=== PATIENT | female | born 1970 | race Caucasian/White ===

== ENCOUNTER 2017-01-07 14:38 | Emergency (ER) | payer OTHER ==
--- NOTE | 2017-01-07 15:08 | ER Document Report ---
ED Medical Screen (RME) - General Stated Complaint: COUGH Mode of Arrival: Ambulatory Information source: Patient Notes: Patient complains of cough for the past 3 weeks. Patient reports right lower quadrant abdominal pain for the past 3 days. Patient denies any urinary symptoms, vaginal bleeding, vaginal discharge, or fever. Patient does report some nausea. Diarrhea has been off and on. hx: None I have greeted and performed a rapid initial assessment of this patient. A comprehensive ED assessment and evaluation of the patient, analysis of test results and completion of the medical decision making process will be conducted by additional ED providers. TRAVEL OUTSIDE OF THE [place] IN LAST 30 DAYS: No - Related Data Allergies/Adverse Reactions: codeine [Codeine] Allergy (Verified 11/29/16 15:32) Past Medical History Pulmonary Medical History: Reports: Hx Asthma, Hx Bronchitis Renal/ Medical History: Reports: Hx Ovarian Cysts Musculoskeltal Medical History: Reports Hx Arthritis - low back, Reports Hx Musculoskeletal Deformity, Reports Hx Musculoskeletal Trauma Traumatic Medical History: Reports: Hx Fractures - Hand Past Surgical History: Reports: Hx Appendectomy, Hx Gynecologic Surgery - Fallopian tubes cleaned out and noted to become , Hx Orthopedic Surgery - Right shoulder - Immunizations Hx Diphtheria, Pertussis, Tetanus Vaccination: Yes Physical Exam - Vital signs Vitals: Temp Pulse Resp BP Pulse Ox 97.9 F 97 18 117/64 100 01/07/17 15:00 01/07/17 15:00 01/07/17 15:00 01/07/17 15:00 01/07/17 15:00 - Respiratory Respiratory status: No respiratory distress Breath sounds: Nonproductive cough Course - Vital Signs Vital signs: Temp Pulse Resp BP Pulse Ox 97.9 F 97 18 117/64 100 01/07/17 15:00 01/07/17 15:00 01/07/17 15:00 01/07/17 15:00 01/07/17 15:00
[2017-01-07 15:31] LABS: ABSOLUTE BASOPHILS # (AUTO) 0.1 10^3/uL (0.0-0.2); ABSOLUTE EOSINOPHILS # (AUTO) 0.1 10^3/uL (0.0-0.6); ABSOLUTE LYMPHOCYTES (AUTO) 2.7 10^3/uL (0.5-4.7); ABSOLUTE MONOCYTES (AUTO) 0.5 10^3/uL (0.1-1.4); ABSOLUTE NEUT (AUTO) 6.3 10^3/uL (1.7-8.2); BASOPHILS % (AUTO) 0.8 % (0-2); EOSINOPHILS % (AUTO) 0.9 % (0-6); HEMOGLOBIN 14.5 g/dL (12.0-15.5); HGB HCT DIFFERENCE 1.5; LYMPHOCYTES % (AUTO) 28.2 % (13-45); MEAN CORPUSCULAR HEMOGLOBIN 28.9 pg (27.0-33.4); MEAN CORPUSCULAR HGB CONC 34.4 g/dL (32.0-36.0); MEAN CORPUSCULAR VOLUME 84 fl (80-97); MONOCYTES % (AUTO) 5.1 % (3-13); RED BLOOD COUNT 5.01 10^6/uL (3.72-5.28); RED CELL DISTRIBUTION WIDTH 13.1 % (11.5-14.0); WHITE BLOOD COUNT 9.6 10^3/uL (4.0-10.5)
[2017-01-07 15:47] LABS: APPEARANCE,URINE CLEAR; BILIRUBIN,URINE NEGATIVE (NEGATIVE); GLUCOSE, URINE NEGATIVE (NEGATIVE); KETONES,URINE NEGATIVE (NEGATIVE); LEUKOCYTE ESTERASE,URINE NEGATIVE (NEGATIVE); NITRITE,URINE NEGATIVE (NEGATIVE); PROTEIN,URINE NEGATIVE (NEGATIVE); URINE SPECIFIC GRAVITY 1.005; UROBILINOGEN,URINE NEGATIVE mg/dL (<2.0)
[2017-01-07 15:51] LABS: ALANINE AMINOTRANSFERASE 19 U/L (9-52); ALBUMIN 4.3 g/dL (3.5-5.0); ALKALINE PHOSPHATASE 84 U/L (38-126); ANION GAP 12 (5-19); ASPARTATE AMINO TRANSFERASE 15 U/L (14-36); BILIRUBIN,TOTAL 0.4 mg/dL (0.2-1.3); BLOOD UREA NITROGEN 8 mg/dL (7-20); CALCIUM 9.7 mg/dL (8.4-10.2); CARBON DIOXIDE 27 mmol/L (22-30); CHLORIDE 103 mmol/L (98-107); CREATININE RESULT 0.66 mg/dL (0.52-1.25); GLUCOSE 98 mg/dL (75-110); LIPASE 196.7 U/L (23-300); POTASSIUM 3.9 mmol/L (3.6-5.0); SODIUM 142.3 mmol/L (137-145); TOTAL PROTEIN 7.2 g/dL (6.3-8.2)
--- NOTE | 2017-01-07 21:08 | ER Document Report ---
ED Respiratory Problem - General Chief Complaint: Abdominal Pain Stated Complaint: COUGH Time seen by provider: 21:03 Mode of Arrival: Ambulatory Information source: Patient Notes: 26-year-old female presents to ED for 3 week history of cough congestion. Patient complains of some nausea no vomiting and diarrhea off and on with lower right quadrant abdominal pain. TRAVEL OUTSIDE OF THE [place] IN LAST 30 DAYS: No - HPI Patient complains to provider of: Cough Onset: Other - 3 weeks Duration: Continuous Initiating Event: URI Quality of pain: Sharp Severity: Mild Pain Level: 2 Cough: Nonproductive Sputum amount: None Associated symptoms: Cough, PND, Runny nose, Other - Right abdominal pain. 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 Drug Abuse: None Occupation: [employer] Lives with: Alone Family History: Arthritis, CAD, CVA, DM, Hyperlipidemia, Hypertension, Malignancy Patient has suicidal ideation: No Patient has homicidal ideation: No - Past Medical History Cardiac Medical History: Reports: None Pulmonary Medical History: Reports: Hx Asthma, Hx Bronchitis EENT Medical History: Reports: None Neurological Medical History: Reports: None Endocrine Medical History: Reports: None Renal/ Medical History: Reports: Hx Ovarian Cysts Malignancy Medical History: Reports: None GI Medical History: Reports: None Musculoskeltal Medical History: Reports Hx Arthritis - low back, Reports Hx Musculoskeletal Deformity, Reports Hx Musculoskeletal Trauma Skin Medical History: Reports None Psychiatric Medical History: Reports: None Traumatic Medical History: Reports: Hx Fractures - Hand Infectious Medical History: Reports: None Past Surgical History: Reports: Hx Appendectomy, Hx Gynecologic Surgery - Fallopian tubes cleaned out and noted to become , Hx Orthopedic Surgery - Right shoulder - Immunizations Hx Diphtheria, Pertussis, Tetanus Vaccination: Yes Review of Systems - Review of Systems Constitutional: Recent illness EENT: Nose discharge, Sinus discharge Cardiovascular: No symptoms reported Respiratory: Cough Gastrointestinal: Abdominal pain, Diarrhea, Nausea Genitourinary: No symptoms reported Female Genitourinary: No symptoms reported Musculoskeletal: No symptoms reported Skin: No symptoms reported Hematologic/Lymphatic: No symptoms reported Neurological/Psychological: No symptoms reported -: Yes All other systems reviewed and negative Physical Exam - Vital signs Vitals: Temp Pulse Resp BP Pulse Ox 97.9 F 97 18 117/64 100 01/07/17 15:00 01/07/17 15:00 01/07/17 15:00 01/07/17 15:00 01/07/17 15:00 Interpretation: Normal - General General appearance: Appears well, Alert - HEENT Head: Normocephalic, Atraumatic Eyes: Normal Pupils: PERRL Ears: Normal External canal: Normal Tympanic membrane: Normal Nasal: Purulent discharge, Swelling Mouth/Lips: Normal Mucous membranes: Normal Pharynx: Post nasal drainage. No: Exudate Neck: Normal - Respiratory Respiratory status: No respiratory distress Chest status: Nontender Breath sounds: Nonproductive cough Chest palpation: Normal - Cardiovascular Rhythm: Regular Heart sounds: Normal auscultation Murmur: No - Abdominal Inspection: Normal Distension: No distension Bowel sounds: Normal Tenderness: Tender. No: McBurney's point - Right lower quadrant, Sher's sign , Guarding, Rebound Organomegaly: No organomegaly - Back Back: Normal, Nontender - Extremities General upper extremity: Normal inspection, Nontender, Normal color, Normal ROM , Normal temperature General lower extremity: Normal inspection, Nontender, Normal color, Normal ROM , Normal temperature, Normal weight bearing. No: Aubrie's sign - Neurological Neuro grossly intact: Yes Cognition: Normal Orientation: AAOx4 Osmar Coma Scale Eye Opening: Spontaneous Shepherd Coma Scale Verbal: Oriented Shepherd Coma Scale Motor: Obeys Commands Osmar Coma Scale Total: 15 Speech: Normal Motor strength normal: LUE, RUE, LLE, RLE Sensory: Normal - Psychological Associated symptoms: Normal affect, Normal mood - Skin Skin Temperature: Warm Skin Moisture: Dry Skin Color: Normal Course - Re-evaluation Re-evalutation: 01/07/17 21:[address] Pelaez for abdominal pain. Dr. Pelaez came to the patient examined her and stated she was okay to go home. We'll discharge home with prescription for ibuprofen and a work note and follow-up with her primary doctor. - Vital Signs Vital signs: Temp Pulse Resp BP Pulse Ox 98.2 F 82 18 113/74 100 01/07/17 21:17 01/07/17 21:17 01/07/17 15:00 01/07/17 21:17 01/07/17 21:17 - Laboratory Result Diagrams: 01/07/17 15:15 01/07/17 15:15 Laboratory results interpreted by me: 01/07/17 15:20 Urine Blood SMALL H - Diagnostic Test Radiology reviewed: Image reviewed, Reports reviewed Discharge - Discharge Clinical Impression: URI (upper respiratory infection) Qualifiers: URI type: unspecified URI Qualified Code(s): J06.9 - Acute upper respiratory infection, unspecified Abdominal pain Qualifiers: Abdominal location: right lower quadrant Qualified Code(s): R10.31 - Right lower quadrant pain Condition: Stable Disposition: HOME, SELF-CARE Additional Instructions: UPPER RESPIRATORY ILLNESS: You have a viral infection of the respiratory passages -- a "cold." This common infection causes nasal congestion, drainage, and often sore throat and cough. It is highly contagious. The disease usually lasts about 10 to 14 days. There is no "cure" for the viral infection -- it must run its course. If there is a complication, such as bacterial infection in the nose, sinuses, middle ear, or bronchial tubes, antibiotics may be required. The antibiotics won't affect the virus. Drink plenty of fluids. A humidifier may help. An expectorant medication or decongestant may make you more comfortable. Use acetaminophen or ibuprofen for fever or aches. See the doctor if fever persists over two days, if there is any significant worsening of your symptoms, or if you simply fail to improve as expected. Abdominal Pain There are many causes of abdominal pain. Pain can mean a serious problem requiring surgery (such as appendicitis). It can also be an innocent problem that goes away on its own (such as a viral infection). Often, time must pass to determine the cause of pain. The physician does not feel that hospitalization is necessary, at present. Things may change within the next 24 hours. Call the doctor or come back for re- examination if any problems occur, such as: (1) Pain that becomes more severe, steady, or becomes concentrated in one specific area. Also, pain that is more severe with movement or coughing. (2) Vomiting that persists or becomes more frequent. (3) Blood in the vomitus, urine, or bowel movements. Blood in the stool may have a tarry or black appearance. (4) Shaking chills or fever greater than 100 degrees F. (5) The abdomen becomes more distended or swollen. (6) Bowel movements cease. (7) Failure to improve as expected. DECONGESTANT MEDICATION: A decongestant medicine has been prescribed. Often this medicine is combined in the same tablet with an antihistamine or expectorant. This type of medicine is helpful in treating a bad cold or sinus condition, as well as in treatment of the nasal congestion of hay fever. It is not of much benefit for lung infections. Decongestant medicines are related to stimulants. They can cause an increase in blood pressure and heart rate. Persons with heart disease and high blood pressure should not take decongestants without discussing this with the physician. If you develop palpitations, chest pain, headache, or tremors, stop the medicine and consult your physician. COUGH-SUPPRESSANT & EXPECTORANT MEDICATION: You are to use a cough medication as needed for relief of symptoms. This medicine is a combination of an expectorant (to make the mucous thinner and more easily "coughed up") and a cough suppressant (to reduce the frequency of coughing). The cough-suppressant medicine is related to narcotics. You may experience mild nausea and sleepiness. Some patients who are very sensitive to narcotics may have stomach pain from this medicine. Taking the medicine with food reduces these side effects. Do not drive or work with machinery until you know how this medicine affects you. The expectorant should have no side effects. Iodine-containing expectorants (such as organidin) should not be taken by persons with active thyroid disease unless approved by your doctor. Call the doctor if you develop shortness of breath, hives, rash, itching, lightheadedness, or severe nausea and vomiting. USE OF ACETAMINOPHEN (Tylenol): Acetaminophen may be taken for pain relief or fever control. It's much safer than aspirin, offering a wider range of "safe" dosages. It is safe during . Some brand names are Tylenol, Panadol, Datril, Anacin 3, Tempra, and Liquiprin. Acetaminophen can be repeated every four hours. The following are maximum recommended dosages: >89 pounds or adults 650 mg to 900 mg Acetaminophen can be repeated every four hours. Maximum dose not to exceed 4000 mg a day. FOLLOW-UP CARE: If you have been referred to a physician for follow-up care, call the physician s office for an appointment as you were instructed or within the next two days. If you experience worsening or a significant change in your symptoms, notify the physician immediately or return to the Emergency Department at any time for re-evaluation. Prescriptions: Ibuprofen 600 mg PO Q6HP PRN #20 tablet PRN Reason: Forms: Return to Work
[2017-01-07] MEDS ORDERED: IBUPROFEN 800 MG TABLET PO ONE (21:16)
[2017-01-07 21:18] VITALS: BP 113/74
== END 2017-01-07 21:28 | disposition home or self-care (01) ==
LOC: ER 14:38
DX: R10.31 Right lower quadrant pain (principal); J06.9 Acute upper respiratory infection, unspecified; R11.0 Nausea; R19.7 Diarrhea, unspecified; R09.89 Other specified symptoms and signs involving the circulatory and respiratory systems; R05 Cough; R09.82 Postnasal drip; J45.909 Unspecified asthma, uncomplicated; Z88.5 Allergy status to narcotic agent; Z87.891 Personal history of nicotine dependence; Z90.49 Acquired absence of other specified parts of digestive tract
CPT/HCPCS: 36415; 71020; 80053; 81001; 83690; 84703; 85025; 99283

== ENCOUNTER 2017-02-07 07:20 | Emergency (ER) | payer BC, OTHER ==
[2017-02-07] MEDS ORDERED: CEFTRIAXONE RTU 1 GM/D5W 50 ML IV ONE (09:16)
[2017-02-07] MEDS ORDERED: MORPHINE SULFATE 10 MG/ML INJ IV ONE ×2 (09:16→11:55)
[2017-02-07] MEDS ORDERED: ONDANSETRON 4 MG TAB.RAPDIS PO ONE (09:16)
[2017-02-07] MEDS ORDERED: NORMAL SALINE 1000 ML 1,000 ML IV ONE (09:19)
--- NOTE | 2017-02-07 09:20 | ER Document Report ---
ED Breast Problem - General Chief Complaint: Breast Lump Stated Complaint: SORE BREAST Time seen by provider: 09:13 Mode of Arrival: Ambulatory Information source: Patient TRAVEL OUTSIDE OF THE [place] IN LAST 30 DAYS: No - HPI Patient complains to provider of: Lump, Swelling - Just behind the nipple, Tenderness Onset: Other - 2 days Onset/Duration: Gradual Quality of pain: Pressure, Sharp, Throbbing Severity: Severe Pain Level: 5 Discharge description: No: Creamy - Firm white particulate from the nipple that does not appear to be liquid. Associated Symptoms: None Similar symptoms previously: No Recently seen / treated by doctor: No - Related Data Allergies/Adverse Reactions: codeine [Codeine] Allergy (Verified 02/07/17 07:32) Past Medical History - General Information source: Patient - Social History Smoking Status: Never Smoker Cigarette use (# per day): No Chew tobacco use (# tins/day): No Smoking Education Provided: No Frequency of alcohol use: Occasional Drug Abuse: None Occupation: [employer] Lives with: Alone Family History: Arthritis, CAD, CVA, DM, Hyperlipidemia, Hypertension, Malignancy Patient has suicidal ideation: No Patient has homicidal ideation: No - Past Medical History Cardiac Medical History: Reports: None Pulmonary Medical History: Reports: Hx Asthma, Hx Bronchitis EENT Medical History: Reports: None Neurological Medical History: Reports: None Endocrine Medical History: Reports: None Renal/ Medical History: Reports: Hx Ovarian Cysts Malignancy Medical History: Reports: None GI Medical History: Reports: None Musculoskeltal Medical History: Reports Hx Arthritis - low back, Reports Hx Musculoskeletal Deformity, Reports Hx Musculoskeletal Trauma Skin Medical History: Reports None Psychiatric Medical History: Reports: None Traumatic Medical History: Reports: Hx Fractures - Hand Infectious Medical History: Reports: None Past Surgical History: Reports: Hx Appendectomy, Hx Gynecologic Surgery - Fallopian tubes cleaned out and noted to become , Hx Orthopedic Surgery - Right shoulder - Immunizations Hx Diphtheria, Pertussis, Tetanus Vaccination: Yes Review of Systems - Review of Systems Constitutional: No symptoms reported EENT: No symptoms reported Cardiovascular: No symptoms reported Respiratory: No symptoms reported Gastrointestinal: No symptoms reported Genitourinary: No symptoms reported Female Genitourinary: Other - Breast tenderness to right breast behind the nipple nipple very tender. States she is not able to stand anything touching her right nipple. Musculoskeletal: No symptoms reported Skin: No symptoms reported Hematologic/Lymphatic: No symptoms reported Neurological/Psychological: No symptoms reported -: Yes All other systems reviewed and negative Physical Exam - Vital signs Vitals: Temp Pulse Resp BP Pulse Ox 97.9 F 81 16 123/81 100 02/07/17 07:33 02/07/17 07:33 02/07/17 07:33 02/07/17 07:33 02/07/17 07:33 Interpretation: Normal - General General appearance: Appears well, Alert - HEENT Head: Normocephalic, Atraumatic Eyes: Normal Pupils: PERRL - Respiratory Respiratory status: No respiratory distress Chest status: Tender - Right nipple very tender to touch mass behind the right nipple, mass behind the nipple. Breath sounds: Normal Chest palpation: Normal - Cardiovascular Rhythm: Regular Heart sounds: Normal auscultation Murmur: No - Abdominal Inspection: Normal Distension: No distension Bowel sounds: Normal Tenderness: Nontender Organomegaly: No organomegaly - Back Back: Normal, Nontender - Extremities General upper extremity: Normal inspection, Nontender, Normal color, Normal ROM , Normal temperature General lower extremity: Normal inspection, Nontender, Normal color, Normal ROM , Normal temperature, Normal weight bearing. No: Aubrie's sign - Neurological Neuro grossly intact: Yes Cognition: Normal Orientation: AAOx4 [place] Coma Scale Eye Opening: Spontaneous [place] Coma Scale Verbal: Oriented Osmar Coma Scale Motor: Obeys Commands [place] Coma Scale Total: 15 Speech: Normal Motor strength normal: LUE, RUE, LLE, RLE Sensory: Normal - Psychological Associated symptoms: Normal affect, Normal mood - Skin Skin Temperature: Warm Skin Moisture: Dry Skin Color: Normal Course - Re-evaluation Re-evalutation: 02/07/17 18:[address] Coyne when she was first examined. He recommended lab work, antibiotics and IV pain medicine. He also recommended that the surgeon be consult for a breast abscess. When Dr. Sol was notified he stated that he would've a ultrasound of the breast and if there was an abscess on the ultrasound please notify him and he would come and examine the patient. The ultrasound did not demonstrate a abscess but did say that it had a inflammation to the breast. This was discussed with Dr. Coyne. Patient was sent home on antibiotics and pain medication and instructed to follow-up with her primary doctor. An I&D was done of the nipple the little white discharge before she was discharged. - Vital Signs Vital signs: Temp Pulse Resp BP Pulse Ox 97.9 F 81 16 123/81 100 02/07/17 07:33 02/07/17 07:33 02/07/17 07:33 02/07/17 07:33 02/07/17 07:33 - Laboratory Result Diagrams: 02/07/17 10:15 02/07/17 10:15 - Diagnostic Test Radiology reviewed: Image reviewed, Reports reviewed - Consults Dr. Sol Time consulted: 11:16 Reason for consultation: 02/07/17 11:16 Painful lump to right breast behind the nipple. Dr. Sol suggested a ultrasound and that there was an abscess there then he would come and see and the patient. Discharge - Discharge Clinical Impression: Breast inflammation Condition: Stable Disposition: HOME, SELF-CARE Instructions: Family Physicians / Practices Additional Instructions: Breast Lumps There is a lump in your breast. We realize this will worry you. Most breast masses are not cancer. Most breast masses are fibrocystic disease, simple cysts, or fibroadenoma, which are benign. The first step is usually a mammogram or ultrasound of the breast. Your private physician, or a surgeon, can complete the evaluation. Be sure to keep your follow-up appointment. If the lump is malignant, early removal is your best chance of a cure. The ultrasound of your breast shows inflammation to the breast tissue. You will be started on 2 antibiotics and some pain medicine. You also need to follow-up with a primary doctor within the next 24-48 hrs. to follow-up this pain and inflammation to ensure that it it resolves itself. I will give you a list of local primary doctors please find someone and call them today to schedule appointment as soon as possible. Apply warm compresses such as a washcloth heated up with warm water 2-3 times a day for discomfort. Warm showers should also help with the pain. Cephalexin The antibiotic you've been prescribed is a member of the cephalosporin class. This type of antibiotic covers a wide variety of infections, including those of the skin, lungs, and urinary tract. It's useful for staph infections. This antibiotic is slightly similar to the penicillin family. In rare cases , a person who is allergic to penicillin will also be allergic to this medication. If you have had a severe allergic reaction to penicillin, and have not taken this antibiotic since that time, notify your doctor. Antibiotics which cover many germs ("broad spectrum" antibiotics) are more likely to cause diarrhea or "yeast" infections. Women prone to vaginal yeast problems may suffer an attack after taking this antibiotic. In infants, oral thrush (white spots "stuck" on the cheek) or yeast diaper rash may result. See your doctor if these problems occur. Call at once if you develop itching, hives , shortness of breath, or lightheadedness. Sulfa Medications The antibiotic you have received is a member of the sulfa family. These antibiotics are commonly used for eye, ear, lung, or urinary infections. Sulfa antibiotics are best taken on an empty stomach. Extra glasses of water help the kidney process the antibiotic. Sulfas are not recommended for infants under two months, or for women near the end of . Occasional side effects can include nausea or diarrhea. Stop the medication and notify your doctor at once if you develop any skin rash, bruising, jaundice (yellow color of the skin), itching, swelling, joint pain, faintness, or shortness of breath, or if you note any other new or unusual symptoms. Oral Narcotic Medication You have been given a prescription for pain control. This medication is a narcotic. It's best taken with food, as nausea can result if taken on an empty stomach. Don't operate machinery or drive within six hours of taking this medication. Do not combine this medicine with alcohol, or with any medication which can cause sedation (such as cold tablets or sleeping pills) unless you get permission from the physician. Narcotics tend to cause constipation. If possible, drink plenty of fluids and eat a diet high in fiber and fruits. FOLLOW-UP CARE: If you have been referred to a physician for follow-up care, call the physician s office for an appointment as you were instructed or within the next two days. If you experience worsening or a significant change in your symptoms, notify the physician immediately or return to the Emergency Department at any time for re-evaluation. Prescriptions: Hydrocodone/Acetaminophen [Garrison 5-325 mg Tablet] 1 tab PO Q6HP PRN #20 tablet PRN Reason: Cephalexin Monohydrate [Keflex 500 mg Capsule] 500 mg PO QID #40 capsule Sulfamethoxazole/Trimethoprim [Septra-Ds 800-160 mg Tablet] 1 tab PO BID #20 tablet Forms: Return to Work
[2017-02-07 10:27] LABS: ABSOLUTE BASOPHILS # (AUTO) 0.1 10^3/uL (0.0-0.2); ABSOLUTE EOSINOPHILS # (AUTO) 0.1 10^3/uL (0.0-0.6); ABSOLUTE MONOCYTES (AUTO) 0.5 10^3/uL (0.1-1.4); ABSOLUTE NEUT (AUTO) 5.1 10^3/uL (1.7-8.2); BASOPHILS % (AUTO) 0.7 % (0-2); EOSINOPHILS % (AUTO) 0.9 % (0-6); HEMATOCRIT 41.6 % (36.0-47.0); HEMOGLOBIN 14.4 g/dL (12.0-15.5); HGB HCT DIFFERENCE 1.6; LYMPHOCYTES % (AUTO) 34.1 % (13-45); MEAN CORPUSCULAR HEMOGLOBIN 29.4 pg (27.0-33.4); MEAN CORPUSCULAR HGB CONC 34.7 g/dL (32.0-36.0); MEAN CORPUSCULAR VOLUME 85 fl (80-97); MONOCYTES % (AUTO) 6.3 % (3-13); RED BLOOD COUNT 4.91 10^6/uL (3.72-5.28); WHITE BLOOD COUNT 8.7 10^3/uL (4.0-10.5)
[2017-02-07 10:57] LABS: ALANINE AMINOTRANSFERASE 27 U/L (9-52); ALBUMIN 4.2 g/dL (3.5-5.0); ALKALINE PHOSPHATASE 79 U/L (38-126); ANION GAP 13 (5-19); ASPARTATE AMINO TRANSFERASE 16 U/L (14-36); BILIRUBIN,TOTAL 0.6 mg/dL (0.2-1.3); BLOOD UREA NITROGEN 10 mg/dL (7-20); CALCIUM 9.6 mg/dL (8.4-10.2); CARBON DIOXIDE 24 mmol/L (22-30); CHLORIDE 103 mmol/L (98-107); CREATININE RESULT 0.59 mg/dL (0.52-1.25); GLUCOSE 92 mg/dL (75-110); POTASSIUM 3.9 mmol/L (3.6-5.0); SODIUM 139.6 mmol/L (137-145); TOTAL PROTEIN 7.4 g/dL (6.3-8.2)
[2017-02-07] MEDS ORDERED: CEPHALEXIN 500 MG CAPSULE PO ONE (12:51)
[2017-02-07] MEDS ORDERED: SULFAMETHOXAZOLE/TRIMETHOPRIM 800-160 MG TABLET PO ONE (12:51)
[2017-02-07 13:30] VITALS: BP 101/60
== END 2017-02-07 13:10 | disposition home or self-care (01) ==
LOC: ER 07:20
DX: N63 Unspecified lump in breast (principal)
CPT/HCPCS: 96376; 99283; 96375; 96365; 36415; 87070; 87205; 84703; 85025; 87075; 80053; 76642; S0119; J2270; J7030; J0696

== ENCOUNTER 2017-05-03 01:35 | Emergency (ER) | payer BC ==
[2017-05-03] MEDS ORDERED: KETOROLAC TROMETHAMINE 60 MG/2 ML SDV IM ONE (03:07)
--- NOTE | 2017-05-03 03:13 | ER Document Report ---
HPI - HPI Patient complains to provider of: shoulder pain Pain Level: 3 Context: Patient is a 47-year-old female presents emergency department complaining of right shoulder pain. Patient states that she has a history of shoulder tendon reconstruction 2014. Patient states that her shoulder has been hurting her for the past week and a half. Any recent trauma. Any recent increase in strenuous activity. she has been taking [id number] Tylenol with minimal relief in her symptoms. She states it hurts worse with movement. Patient works as a [employer]. Denies any other medical problems. - REPRODUCTIVE Reproductive: DENIES: : - DERM Skin Color: Normal, [place] Past Medical History - Social History Smoking Status: Never Smoker Chew tobacco use (# tins/day): No Frequency of alcohol use: Occasional Drug Abuse: None Family History: Arthritis, CAD, CVA, DM, Hyperlipidemia, Hypertension, Malignancy Patient has suicidal ideation: No Patient has homicidal ideation: No Pulmonary Medical History: Reports: Hx Asthma, Hx Bronchitis Renal/ Medical History: Reports: Hx Ovarian Cysts. Denies: Hx Peritoneal Dialysis Musculoskeltal Medical History: Reports Hx Arthritis - low back, Reports Hx Musculoskeletal Deformity, Reports Hx Musculoskeletal Trauma Traumatic Medical History: Reports: Hx Fractures - Hand Past Surgical History: Reports: Hx Appendectomy, Hx Gynecologic Surgery - Fallopian tubes cleaned out and noted to become , Hx Orthopedic Surgery - Right shoulder - Immunizations Hx Diphtheria, Pertussis, Tetanus Vaccination: Yes Vertical Provider Document - CONSTITUTIONAL Agree With Documented VS: Yes Exam Limitations: No Limitations General Appearance: WD/WN, No Apparent Distress - INFECTION CONTROL TRAVEL OUTSIDE OF THE [place] IN LAST 30 DAYS: No - RESPIRATORY O2 Sat by Pulse Oximetry: 100 - CARDIOVASCULAR Pulses: Normal: Radial Notes: Capillary refill less than 2 seconds in all upper extremity digit - MUSCULOSKELETAL/EXTREMETIES Musculoskeletal/Extremeties: MAEW, FROM, Tender, No Edema. negative: Eccymosis - NEURO Level of Consciousness: Awake, Alert, Appropriate Motor/Sensory: No Motor Deficit, No Sensory Deficit - DERM Integumentary: Warm, Dry, No Rash Course - Re-evaluation Re-evalutation: 05/03/17 06:22 Given patient's history and chronicity of her complaints, no additional imaging was indicated at this time. Patient upper extremity neurovascularly intact. Given Toradol for pain and instruction to follow-up with primary care - Vital Signs Vital signs: Temp Pulse Resp BP Pulse Ox 98.3 F 73 16 113/71 100 05/03/17 01:53 05/03/17 01:53 05/03/17 01:53 05/03/17 01:53 05/03/17 01:53 Discharge - Discharge Clinical Impression: Shoulder pain Qualifiers: Laterality: right Chronicity: unspecified Qualified Code(s): M25.511 - Pain in right shoulder Condition: Good Disposition: HOME, SELF-CARE Instructions: Exercise Program for the Shoulder ([facility]), Anti-Inflammatory Medication ([facility]), Warm Packs ([facility]), Ice Packs ([facility]) Prescriptions: Methylprednisolone [Medrol Dosepack (4 mg/Tab) 21 Tab/Dosepak] 4 mg PO ASDIR PRN #21 tab.ds.pk PRN Reason: Naproxen 500 mg PO BID 10 Days Forms: Return to Work Referrals: JOSE G ORELLANA MD [COMMUNITY BASED STAFF] - Follow up as needed
[2017-05-03 03:44] VITALS: BP 96/56
== END 2017-05-03 03:42 | disposition home or self-care (01) ==
LOC: ER 01:35
DX: M25.511 Pain in right shoulder (principal)
CPT/HCPCS: 99283; 96372; J1885

== ENCOUNTER 2017-06-25 11:39 | Emergency (ER) | payer BC ==
[2017-06-25 12:20] LABS: ABSOLUTE EOSINOPHILS # (AUTO) 0.1 10^3/uL (0.0-0.6); ABSOLUTE LYMPHOCYTES (AUTO) 2.1 10^3/uL (0.5-4.7); ABSOLUTE MONOCYTES (AUTO) 0.5 10^3/uL (0.1-1.4); ABSOLUTE NEUT (AUTO) 5.1 10^3/uL (1.7-8.2); BASOPHILS % (AUTO) 0.4 % (0-2); EOSINOPHILS % (AUTO) 1.6 % (0-6); HEMATOCRIT 42.6 % (36.0-47.0); HEMOGLOBIN 14.6 g/dL (12.0-15.5); HGB HCT DIFFERENCE 1.2; LYMPHOCYTES % (AUTO) 26.1 % (13-45); MEAN CORPUSCULAR HEMOGLOBIN 29.4 pg (27.0-33.4); MEAN CORPUSCULAR HGB CONC 34.2 g/dL (32.0-36.0); MEAN CORPUSCULAR VOLUME 86 fl (80-97); MONOCYTES % (AUTO) 6.9 % (3-13); RED BLOOD COUNT 4.96 10^6/uL (3.72-5.28); RED CELL DISTRIBUTION WIDTH 13.2 % (11.5-14.0); WHITE BLOOD COUNT 7.9 10^3/uL (4.0-10.5)
[2017-06-25 12:29] LABS: APPEARANCE,URINE SLIGHTLY-CLOUDY; BILIRUBIN,URINE NEGATIVE (NEGATIVE); GLUCOSE, URINE NEGATIVE (NEGATIVE); KETONES,URINE NEGATIVE (NEGATIVE); LEUKOCYTE ESTERASE,URINE NEGATIVE (NEGATIVE); NITRITE,URINE NEGATIVE (NEGATIVE); PROTEIN,URINE NEGATIVE (NEGATIVE); URINE SPECIFIC GRAVITY 1.016; UROBILINOGEN,URINE NEGATIVE mg/dL (<2.0)
[2017-06-25 12:35] LABS: ALANINE AMINOTRANSFERASE 41 U/L (9-52); ALBUMIN 4.2 g/dL (3.5-5.0); ALKALINE PHOSPHATASE 90 U/L (38-126); ANION GAP 11 (5-19); ASPARTATE AMINO TRANSFERASE 21 U/L (14-36); BILIRUBIN,DIRECT 0.2 mg/dL (0.0-0.4); BILIRUBIN,TOTAL 0.7 mg/dL (0.2-1.3); BLOOD UREA NITROGEN 7 mg/dL (7-20); CALCIUM 9.4 mg/dL (8.4-10.2); CARBON DIOXIDE 27 mmol/L (22-30); CHLORIDE 102 mmol/L (98-107); CREATININE RESULT 0.64 mg/dL (0.52-1.25); GLUCOSE 96 mg/dL (75-110); LIPASE 80.2 U/L (23-300); POTASSIUM 4.3 mmol/L (3.6-5.0); SODIUM 139.6 mmol/L (137-145); TOTAL PROTEIN 7.8 g/dL (6.3-8.2)
[2017-06-25] MEDS ORDERED: ONDANSETRON 4 MG TAB.RAPDIS PO ONE (13:15)
[2017-06-25] MEDS ORDERED: DICYCLOMINE HCL 20 MG TABLET PO ONE (13:15)
--- NOTE | 2017-06-25 13:41 | ER Document Report ---
ED GI/ - General Chief Complaint: Abdominal Pain Stated Complaint: ABDOMINAL PAIN,HEADACHE Time Seen by Provider: 06/25/17 11:51 Mode of Arrival: Ambulatory Information source: Patient Notes: Patient is a 47-year-old female who presents to the ER today for diffuse abdominal pain that she describes as cramping with nausea, vomiting and diarrhea 2 days. She denies any fever but admits to sweating over the past day , but she just "thought I was hot." TRAVEL OUTSIDE OF THE [place] IN LAST 30 DAYS: No - Related Data Allergies/Adverse Reactions: codeine [Codeine] Allergy (Verified 06/25/17 11:45) Past Medical History - General Information source: Patient - Social History Smoking Status: Never Smoker Chew tobacco use (# tins/day): No Frequency of alcohol use: None Drug Abuse: None Family History: Arthritis, CAD, CVA, DM, Hyperlipidemia, Hypertension, Malignancy Patient has suicidal ideation: No Patient has homicidal ideation: No Pulmonary Medical History: Reports: Hx Asthma, Hx Bronchitis Renal/ Medical History: Reports: Hx Ovarian Cysts. Denies: Hx Peritoneal Dialysis Musculoskeltal Medical History: Reports Hx Arthritis - low back, Reports Hx Musculoskeletal Deformity, Reports Hx Musculoskeletal Trauma Traumatic Medical History: Reports: Hx Fractures - Hand Past Surgical History: Reports: Hx Appendectomy, Hx Gynecologic Surgery - Fallopian tubes cleaned out and noted to become , Hx Orthopedic Surgery - Right shoulder - Immunizations Hx Diphtheria, Pertussis, Tetanus Vaccination: Yes Review of Systems - Review of Systems Constitutional: See HPI EENT: No symptoms reported Cardiovascular: No symptoms reported Respiratory: No symptoms reported Gastrointestinal: See HPI Genitourinary: No symptoms reported Female Genitourinary: No symptoms reported Musculoskeletal: No symptoms reported Skin: No symptoms reported Hematologic/Lymphatic: No symptoms reported Neurological/Psychological: No symptoms reported Physical Exam - Vital signs Vitals: Temp Pulse Resp BP Pulse Ox 98.3 F 92 16 105/60 97 06/25/17 11:47 06/25/17 11:47 06/25/17 11:47 06/25/17 11:47 06/25/17 11:47 - Notes Notes: PHYSICAL EXAMINATION: GENERAL: Mildly ill-appearing, but in no acute distress. HEAD: Atraumatic, normocephalic. EYES: Pupils equal round and reactive to light, extraocular movements intact, sclera anicteric, conjunctiva are normal. NECK: Normal range of motion, supple without lymphadenopathy LUNGS: CTAB and equal. No wheezes rales or rhonchi. HEART: Regular rate and rhythm without murmurs ABDOMEN: Soft, no tenderness. No guarding, no rebound BACK: no vertebral tenderness, normal ROM GI/: no CVA tenderness EXTREMITIES: Normal range of motion, no pitting edema. No cyanosis. NEUROLOGICAL: Cranial nerves grossly intact. Normal sensory/motor exams. PSYCH: Normal mood, normal affect. SKIN: Warm, Dry, normal turgor, no rashes or lesions noted Course - Vital Signs Vital signs: Temp Pulse Resp BP Pulse Ox 98.3 F 92 16 105/60 97 06/25/17 11:47 06/25/17 11:47 06/25/17 11:47 06/25/17 11:47 06/25/17 11:47 - Laboratory Result Diagrams: 06/25/17 12:05 06/25/17 12:05 Laboratory results interpreted by me: 06/25/17 11:55 Urine Blood MODERATE H Discharge - Discharge Clinical Impression: Nausea and vomiting Qualifiers: Vomiting type: unspecified Vomiting Intractability: non-intractable Qualified Code(s): R11.2 - Nausea with vomiting, unspecified Diarrhea Qualifiers: Diarrhea type: unspecified type Qualified Code(s): R19.7 - Diarrhea, unspecified Condition: Stable Disposition: HOME, SELF-CARE Instructions: Diarrhea, Nonspecific ([facility]), Viral Syndrome ([facility]), Vomiting ([facility]) Additional Instructions: Drink plenty of fluids, Gatorade. Return immediately for any new or worsening symptoms. Follow up with primary care provider, call tomorrow to make followup appointment. Prescriptions: Ondansetron [Zofran Odt 4 mg Tablet] 1 - 2 tab PO Q4H PRN #30 tab.rapdis PRN Reason: For Nausea/Vomiting Forms: Return to Work
[2017-06-25 14:08] VITALS: BP 105/55
== END 2017-06-25 14:08 | disposition home or self-care (01) ==
LOC: ER 11:39
DX: R11.2 Nausea with vomiting, unspecified (principal); R19.7 Diarrhea, unspecified; R10.9 Unspecified abdominal pain; Z88.6 Allergy status to analgesic agent
CPT/HCPCS: 99284; 36415; 83690; 85025; 81025; 80053; 81001; J3490; S0119

== ENCOUNTER 2017-08-15 07:22 | Emergency (ER) | payer BC ==
[2017-08-15] MEDS ORDERED: IBUPROFEN 800 MG TABLET PO ONE (08:35)
--- NOTE | 2017-08-15 08:45 | ER Document Report ---
ED Breast Problem - General Chief Complaint: Breast Problem Stated Complaint: LEFT BREAST PAIN Time Seen by Provider: 08/15/17 07:38 Notes: Patient is a 37-year-old female who presents emergency department complaining of left diffuse breast pain. Patient states that this started suddenly yesterday. She denies any fever, chills, drainage, swelling, firmness. Patient states that she had a previous breast infection back in January where she was evaluated here. Patient states that she was evaluated for breast abscess but was told that is just inflammation started on antibiotics and pain medication and told to follow-up with primary care. Patient states that she never followed up with primary care. Her last mammogram was about 7 years ago. Otherwise healthy female. She is a smoker. She does not have a primary care doctor. TRAVEL OUTSIDE OF THE [place] IN LAST 30 DAYS: No - Related Data Allergies/Adverse Reactions: codeine [Codeine] Allergy (Verified 06/25/17 11:45) Past Medical History - Social History Smoking Status: Never Smoker Frequency of alcohol use: None Drug Abuse: None Family History: Arthritis, CAD, CVA, DM, Hyperlipidemia, Hypertension, Malignancy Pulmonary Medical History: Reports: Hx Asthma, Hx Bronchitis Renal/ Medical History: Reports: Hx Ovarian Cysts. Denies: Hx Peritoneal Dialysis Musculoskeltal Medical History: Reports Hx Arthritis - low back, Reports Hx Musculoskeletal Deformity, Reports Hx Musculoskeletal Trauma Traumatic Medical History: Reports: Hx Fractures - Hand Past Surgical History: Reports: Hx Appendectomy, Hx Gynecologic Surgery - Fallopian tubes cleaned out and noted to become , Hx Orthopedic Surgery - Right shoulder - Immunizations Hx Diphtheria, Pertussis, Tetanus Vaccination: Yes Review of Systems - Review of Systems Constitutional: No symptoms reported Cardiovascular: No symptoms reported Respiratory: No symptoms reported Gastrointestinal: No symptoms reported Skin: See HPI -: Yes All other systems reviewed and negative Physical Exam - Vital signs Vitals: Temp Pulse Resp BP Pulse Ox 99.5 F 91 16 130/67 H 99 08/15/17 07:33 08/15/17 07:33 08/15/17 07:33 08/15/17 07:33 08/15/17 07:33 - Notes Notes: PHYSICAL EXAM GENERAL: Alert, interacts well. Breast: Skin overlying bilateral breast tissue warm, dry, normal turgor without any rashes or lesions. No edema, ecchymosis. No evidence of drainage. Nontender without any palpable lymph nodes, masses. Left breast right breast with moderate tenderness to palpation but no appreciated induration, edema, palpable masses or nodules. LUNGS: Clear to auscultation bilaterally, no wheezes, rales, or rhonchi. No respiratory distress. HEART: Regular rate and rhythm. No murmurs, gallops, or rubs. ABDOMEN: Soft, nondistended, nontender. No guarding, rebound, or rigidity.. Bowel sounds present in all 4 quadrants. EXTREMITIES: Moves all 4 extremities spontaneously. No edema, radial and dorsalis pedis pulses 2/4 bilaterally. No cyanosis. NEUROLOGICAL: Alert and oriented x4. Normal speech. PSYCH: Normal affect, normal mood. SKIN: Warm, dry, normal turgor. No rashes or lesions noted. Course - Re-evaluation Re-evalutation: 08/15/17 08:42 Patient is a 47-year-old female who is hemodynamically stable, no acute distress and afebrile. Given presentation today, physical exam, noncompliance with mammogram imaging patient was discussed with radiologist Dr. Mcclure and consulting physician Dr. Wagner stating in who both recommend scheduling patient for outpatient breast ultrasound and mammogram. A low clinical suspicion for any evidence of breast abscess, mastitis given no focal physical exam findings and normal vital signs. Given that patient does have insurance but no primary care provider have consulted casework specialist to help schedule patient for outpatient set up. Patient educated on resources through [employer] about finding a provider in the area. Discussed with patient that we will be following up with her to make sure she has this appointment scheduled. Patient agrees with plan. - Vital Signs Vital signs: Temp Pulse Resp BP Pulse Ox 99.5 F 91 16 130/67 H 99 08/15/17 07:33 08/15/17 07:33 08/15/17 07:33 08/15/17 07:33 08/15/17 07:33 Discharge - Discharge Clinical Impression: Breast pain Condition: Good Disposition: HOME, SELF-CARE Additional Instructions: -At this time there is low suspicion for any evidence of infection in your breast however please be aware of any signs of fever, chills, redness, increased tenderness, drainage requiring reevaluation either in the emergency department or by your primary care doctor. -Our casework specialist will be in touch with you please be sure to follow-up in the [facility] website to find a physician in the area who is accepting new patients who can accept you and schedule you for an outpatient breast ultrasound and mammogram. -Either today or tomorrow regarding assisting you in scheduling this appointment. If you at any time have any difficulty scheduling an outpatient ultrasound or mammogram please feel free to contact the emergency department at to get in touch with her casework specialist Mike Edwards Prescriptions: Ibuprofen [Motrin 800 mg Tablet] 800 mg PO Q8H PRN #30 tab PRN Reason: Tramadol HCl 50 mg PO BID #10 tablet Forms: Return to Work Referrals: MIKE EDWARDS, HAYLEE [REGISTERED NURSE] - Follow up as needed DIAN PIERRE MD [ACTIVE STAFF] - Follow up in 1 week (This physician accepts your insurance. Please be sure to call after your discharge to be scheduled)
[2017-08-15 09:04] VITALS: BP 127/62
== END 2017-08-15 09:04 | disposition home or self-care (01) ==
LOC: ER 07:22
DX: N64.4 Mastodynia (principal); F17.200 Nicotine dependence, unspecified, uncomplicated; Z88.6 Allergy status to analgesic agent
CPT/HCPCS: 99283

== ENCOUNTER 2017-08-26 16:40 | Emergency (ER) | payer BC ==
[2017-08-26 16:46] VITALS: BP 129/59
[2017-08-26] MEDS ORDERED: IBUPROFEN 800 MG TABLET PO ONE (17:57)
--- NOTE | 2017-08-26 17:57 | ER Document Report ---
ED ENT - General Chief Complaint: Sore Throat Stated Complaint: SORE THROAT Time Seen by Provider: 08/26/17 17:14 Notes: Patient is a 47-year-old female presents emergency department complaining of sore throat that started Saturday. States it is a scratchy throat for the past 2 days and then woke up this morning with pain with swallowing and ear pain. She admits to runny nose and congestion. But denies any fevers, difficulty breathing, difficulty swallowing. Otherwise healthy female TRAVEL OUTSIDE OF THE [place] IN LAST 30 DAYS: No - Related Data Allergies/Adverse Reactions: codeine [Codeine] Allergy (Verified 08/26/17 16:44) Past Medical History - Social History Smoking Status: Never Smoker Family History: Arthritis, CAD, CVA, DM, Hyperlipidemia, Hypertension, Malignancy Pulmonary Medical History: Reports: Hx Asthma, Hx Bronchitis Renal/ Medical History: Reports: Hx Ovarian Cysts. Denies: Hx Peritoneal Dialysis Musculoskeltal Medical History: Reports Hx Arthritis - low back, Reports Hx Musculoskeletal Deformity, Reports Hx Musculoskeletal Trauma Traumatic Medical History: Reports: Hx Fractures - Hand Past Surgical History: Reports: Hx Appendectomy, Hx Gynecologic Surgery - Fallopian tubes cleaned out and noted to become , Hx Orthopedic Surgery - Right shoulder - Immunizations Hx Diphtheria, Pertussis, Tetanus Vaccination: Yes Review of Systems - Review of Systems Constitutional: No symptoms reported EENT: See HPI Cardiovascular: No symptoms reported Respiratory: No symptoms reported -: Yes All other systems reviewed and negative Physical Exam - Vital signs Vitals: Temp Pulse Resp BP Pulse Ox 99.1 F 122 H 24 H 129/59 H 99 08/26/17 16:45 08/26/17 16:45 08/26/17 16:45 08/26/17 16:45 08/26/17 16:45 - Notes Notes: Pending PHYSICAL EXAM GENERAL: Alert, interacts well. HEAD: Normocephalic, atraumatic. EYES: Pupils equal, round, and reactive to light. Extraocular movements intact. ENT: Oral mucosa moist, tongue midline. Uvula midline. Airway patent. No evidence of tonsillar enlargement, peritonsillar abscess, retropharyngeal abscess. NECK: Full range of motion. Supple. Trachea midline. LUNGS: Clear to auscultation bilaterally, no wheezes, rales, or rhonchi. No respiratory distress. HEART: Regular rate and rhythm. No murmurs, gallops, or rubs. NEUROLOGICAL: Alert and oriented x4. Normal speech. PSYCH: Normal affect, normal mood. SKIN: Warm, dry, normal turgor. No rashes or lesions noted. Course - Re-evaluation Re-evalutation: 08/26/17 19:17 Patient is a 47-year-old female hemodynamic stable, no distress afebrile. Initial heart rate of 122 was reduced down to 98. Patient tolerating p.o. without any difficulty. Rapid strep is negative. Discussed with patient signs and symptoms to be aware of indicating return to the emergency department otherwise will follow up with culture results. At this time patient is afebrile , without any evidence of pharyngeal erythema, tonsillar exudates therefore does not meet criteria for which clinical treatment for strep pharyngitis. Will discharge home. - Vital Signs Vital signs: Temp Pulse Resp BP Pulse Ox 99.1 F 122 H 24 H 129/59 H 99 08/26/17 16:45 08/26/17 16:45 08/26/17 16:45 08/26/17 16:45 08/26/17 16:45 Discharge - Discharge Clinical Impression: URI (upper respiratory infection) Qualifiers: URI type: unspecified viral URI Qualified Code(s): J06.9 - Acute upper respiratory infection, unspecified Condition: Good Disposition: HOME, SELF-CARE Instructions: Acetaminophen, Sore Throat ([facility]), Viral Syndrome ([facility]) Forms: Return to Work
== END 2017-08-26 18:20 | disposition home or self-care (01) ==
LOC: ER 16:40
DX: J06.9 Acute upper respiratory infection, unspecified (principal); J02.9 Acute pharyngitis, unspecified; Z88.6 Allergy status to analgesic agent
CPT/HCPCS: 87070; 87880; 99283

== ENCOUNTER 2017-10-17 17:11 | Emergency (ER) | payer BC ==
[2017-10-17 17:45] VITALS: BP 121/80
--- NOTE | 2017-10-17 18:46 | RADIOLOGY REPORT (SQ) ---
EXAM DESCRIPTION: CHEST PA/LAT COMPLETED DATE/TIME: 10/17/2017 6:37 pm REASON FOR STUDY: cough COMPARISON: 01/07/2017 EXAM PARAMETERS: NUMBER OF VIEWS: two views TECHNIQUE: Digital Frontal and Lateral radiographic views of the chest acquired. RADIATION DOSE: NA LIMITATIONS: none FINDINGS: LUNGS AND PLEURA: No opacities, masses or pneumothorax. No pleural effusion. MEDIASTINUM AND HILAR STRUCTURES: No masses or contour abnormalities. HEART AND VASCULAR STRUCTURES: Heart normal size. No evidence for failure. BONES: No acute findings. HARDWARE: None in the chest. OTHER: No other significant finding. IMPRESSION: NO SIGNIFICANT RADIOGRAPHIC FINDING IN THE CHEST. TECHNICAL DOCUMENTATION: JOB ID: [id number] [email or web address]- All Rights Reserved
--- NOTE | 2017-10-17 19:08 | ER Document Report ---
HPI - HPI Pain Level: 2 Notes: Patient is a 47-year-old female no significant past medical history presents ED complaining of a dry nonproductive cough 2 months as well as occasional nasal congestion. Patient states that she has been coughing so much that she has started to develop an occasional headache that is mild and does not radiate. Patient has been using [id number] meds with minimal relief. Patient still eating and drink without difficulties. She still urinating normally and having normal bowel movements. She denies any history of smoking or IV drug use. She denies any other recent illness. Denies any travel, hormone use, recent surgeries or procedures, or trauma. Denies any headache, fever, neck pain, sore throat, chest pain, palpitations, syncope, shortness of breath, wheeze, dyspnea, abdominal pain, nausea/vomiting/diarrhea, urinary retention, dysuria, hematuria, or rash. - ROS Notes: REVIEW OF SYSTEMS: CONSTITUTIONAL : Denies fever, chills, or sweats. Denies recent illness. EENT: see hpi CARDIOVASCULAR: Denies chest pain. Denies palpitations or racing or irregular heart beat. Denies ankle edema. RESPIRATORY: see hpi. Denies shortness of breath, difficulty breathing, or wheezing. GASTROINTESTINAL: Denies abdominal pain or distention. Denies nausea, vomiting , or diarrhea. GENITOURINARY: Denies difficulty urinating, painful urination, burning, frequency, blood in urine, or discharge. MUSCULOSKELETAL: Denies back or neck pain or stiffness. Denies joint pain or swelling. SKIN: Denies rash, lesions or sores. NEUROLOGICAL: Denies confusion or altered mental status. Denies passing out or loss of consciousness. Denies dizziness or lightheadedness. Denies headache. Denies weakness or paralysis or loss of use of either side. Denies problems with gait or speech. Denies sensory loss, numbness, or tingling. ALL OTHER SYSTEMS REVIEWED AND NEGATIVE. Dictation was performed using [employer] voice recognition software - CONSTITUTIONAL Constitutional: DENIES: Fever, Chills - EENT EENT: DENIES: Sore Throat, Ear Pain, Eye problems - NEURO Neurology: REPORTS: Headache - when coughing. DENIES: Weakness, Vision blurred , Dizzinesss / Vertigo - CARDIOVASCULAR Cardiovascular: DENIES: Chest pain - RESPIRATORY Respiratory: REPORTS: Coughing. DENIES: Trouble Breathing - GASTROINTESTINAL Gastrointestinal: DENIES: Abdominal Pain, Black / Bloody Stools - URINARY Urinary: DENIES: Dysuria, Urgency, Frequency - REPRODUCTIVE Reproductive: DENIES: :, Postmenopausal, Abnormal bleeding / discharge - MUSCULOSKELETAL Musculoskeletal: DENIES: Extremity pain Past Medical History - Social History Smoking Status: Never Smoker Chew tobacco use (# tins/day): No Frequency of alcohol use: None Drug Abuse: None Family History: Arthritis, CAD, CVA, DM, Hyperlipidemia, Hypertension, Malignancy Patient has suicidal ideation: No Patient has homicidal ideation: No Pulmonary Medical History: Reports: Hx Asthma, Hx Bronchitis Renal/ Medical History: Reports: Hx Ovarian Cysts. Denies: Hx Peritoneal Dialysis Musculoskeltal Medical History: Reports Hx Arthritis - low back, Reports Hx Musculoskeletal Deformity, Reports Hx Musculoskeletal Trauma Traumatic Medical History: Reports: Hx Fractures - Hand Past Surgical History: Reports: Hx Appendectomy, Hx Gynecologic Surgery - Fallopian tubes cleaned out and noted to become , Hx Orthopedic Surgery - Right shoulder - Immunizations Hx Diphtheria, Pertussis, Tetanus Vaccination: Yes Vertical Provider Document - CONSTITUTIONAL Agree With Documented VS: Yes Notes: PHYSICAL EXAMINATION: GENERAL: Well-appearing, well-nourished and in no acute distress. HEAD: Atraumatic, normocephalic. EYES: Pupils equal round and reactive to light, extraocular movements intact, sclera anicteric, conjunctiva are normal. ENT: EAC clear b/l. TM's intact b/l without erythema, fluid, or perforation. Nares patent and without discharge. oropharynx clear without exudates. No tonsilar hypertrophy or erythema. Moist mucous membranes. No sinus tenderness. NECK: Normal range of motion, supple without lymphadenopathy. No rigidity/ meningismus. LUNGS: Breath sounds clear to auscultation bilaterally and equal. No wheezes rales or rhonchi. HEART: Regular rate and rhythm without murmurs, rubs, gallops. Musculoskeletal: FROM to passive/active. Strength 5+/5. No calf tenderness. Extremities: No cyanosis, clubbing, or edema b/l. Peripheral pulses 2+. Capillary refill less than 3 seconds. NEUROLOGICAL: Cranial nerves grossly intact. Normal speech, normal gait. Normal sensory, motor exams PSYCH: Normal mood, normal affect. SKIN: Warm, Dry, normal turgor, no rashes or lesions noted. - INFECTION CONTROL TRAVEL OUTSIDE OF THE [place] IN LAST 30 DAYS: No - RESPIRATORY O2 Sat by Pulse Oximetry: 98 Course - Re-evaluation Re-evalutation: 10/17/17 19:08 Patient is an afebrile, well-hydrated, 47-year-old female who presents ED with acute bronchitis. Vitals stable. PE is otherwise unremarkable. Chest x-ray was unremarkable for any acute pathology. Low suspicion for any ACS, PE, pneumothorax, pericarditis, dissection, sepsis, meningitis, respiratory compromise. patient is aware that condition can change from initial presentation and she needs to monitor symptoms closely and seek medical attention with any acute changes. I will send her home with prescription for a Z-Jeffrey and Tessalon Perles as pt has been symptomatic x2 mos. Conservative measures otherwise for symptoms. Recheck with your PCM in 3-5 days. Return to the ED with any worsening/concerning symptoms otherwise as reviewed in discharge. Patient is in agreement. - Vital Signs Vital signs: Temp Pulse Resp BP Pulse Ox 98.5 F 100 16 121/80 98 10/17/17 17:43 10/17/17 17:43 10/17/17 17:43 10/17/17 17:43 10/17/17 17:43 Discharge - Discharge Clinical Impression: Acute bronchitis Qualifiers: Bronchitis organism: unspecified organism Qualified Code(s): J20.9 - Acute bronchitis, unspecified Condition: Stable Disposition: HOME, SELF-CARE Instructions: Bronchitis ([facility]) Additional Instructions: Maintain adequate fluid intake Take meds as directed tylenol/ibuprofen as needed over the counter cold medication as needed for symptoms Humidified air may help F/u: with your PCM in 3-5 days for a recheck Return to the ED with any fever, worsening pain, chest pain, palpitations, syncope, worsening VINCENT, neck pain/stiffness, shortness of breath, wheezing, drooling, trouble swallowing/breathing, abdominal pain, n/v/d, rash, or worsening/concerning symptoms otherwise. Prescriptions: Benzonatate [Tessalon Perle 100 mg Capsule] 100 mg PO Q8HP PRN #15 cap PRN Reason: Azithromycin [Zithromax 250 mg Tablet] 250 mg PO ASDIR PRN #6 tablet PRN Reason: Referrals: [facility] [Provider Group] - Follow up as needed [facility] [Provider Group] - Follow up as needed
== END 2017-10-17 19:28 | disposition home or self-care (01) ==
LOC: ER 17:11
DX: J20.9 Acute bronchitis, unspecified (principal); R09.81 Nasal congestion
CPT/HCPCS: 71020; 99283

== ENCOUNTER 2017-11-06 00:18 | Emergency (ER) | payer BC ==
[2017-11-06 00:49] VITALS: BP 109/69
--- NOTE | 2017-11-06 01:40 | ER Document Report ---
ED Medical Screen (RME) - General Chief Complaint: Shoulder Pain Stated Complaint: RIGHT SHOULDER PAIN Time Seen by Provider: 11/06/17 01:38 Mode of Arrival: Ambulatory Information source: Patient Notes: 47-year-old female presents to ED for complaint of right shoulder pain 2 days. She states she does not know of any definite injury. 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 She states she has had surgery on the same shoulder in 2015. She states usually when she has some pain she takes ibuprofen and heat pads and it works but this has not. Past medical history of PCO with apparent appendectomy laparoscopic surgery for clearing fallopian tubes and her left shoulder surgery. She does not smoke drink or drugs but states she is a former smoker. I have greeted and performed a rapid initial assessment of this patient. A comprehensive ED assessment and evaluation of the patient, analysis of test results and completion of medical decision making process will be conducted by an additional ED providers. TRAVEL OUTSIDE OF THE [place] IN LAST 30 DAYS: No - Related Data Allergies/Adverse Reactions: codeine [Codeine] Allergy (Verified 10/17/17 17:45) Past Medical History Pulmonary Medical History: Reports: Hx Asthma, Hx Bronchitis Renal/ Medical History: Reports: Hx Ovarian Cysts. Denies: Hx Peritoneal Dialysis Musculoskeltal Medical History: Reports Hx Arthritis - low back, Reports Hx Musculoskeletal Deformity, Reports Hx Musculoskeletal Trauma Traumatic Medical History: Reports: Hx Fractures - Hand Past Surgical History: Reports: Hx Appendectomy, Hx Gynecologic Surgery - Fallopian tubes cleaned out and noted to become , Hx Orthopedic Surgery - Right shoulder - Immunizations Hx Diphtheria, Pertussis, Tetanus Vaccination: Yes Physical Exam - Vital signs Vitals: Temp Pulse Resp BP Pulse Ox 98.0 F 93 20 109/69 99 11/06/17 00:48 11/06/17 00:48 11/06/17 00:48 11/06/17 00:48 11/06/17 00:48 Course - Vital Signs Vital signs: Temp Pulse Resp BP Pulse Ox 98.0 F 93 20 109/69 99 11/06/17 00:48 11/06/17 00:48 11/06/17 00:48 11/06/17 00:48 11/06/17 00:48
--- NOTE | 2017-11-06 02:21 | RADIOLOGY REPORT (SQ) ---
EXAM DESCRIPTION: SHOULDER RIGHT 2 OR MORE VIEWS CLINICAL HISTORY: 47 years, Female, pain COMPARISON: None. NUMBER OF VIEWS: 3 TECHNIQUE: External, internal, and Y view. LIMITATIONS: None. FINDINGS: Bones, joints, and soft tissues appear intact. IMPRESSION: Normal right shoulder. 2011 [employer]- All Rights Reserved
[2017-11-06] MEDS ORDERED: LIDOCAINE 5% (700 MG) TRANSDERMAL ADH..PATCH TP ONE (02:40)
[2017-11-06] MEDS ORDERED: MORPHINE SULFATE IR 15 MG TABLET PO ONE (02:40)
[2017-11-06] MEDS ORDERED: IBUPROFEN 600 MG TABLET PO ONE (02:40)
--- NOTE | 2017-11-06 02:52 | ER Document Report ---
ED General - General Chief Complaint: Shoulder Pain Stated Complaint: RIGHT SHOULDER PAIN Time Seen by Provider: 11/06/17 01:38 Mode of Arrival: Ambulatory Notes: Patient is a 47-year-old female who presents with right shoulder pain has been present for the past 3 days. Patient reports a constant, throbbing, severe pain to the right shoulder that is worsened by any attempt to range the shoulder. 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 She has had surgery on the shoulder in the past approximately in 2014. She has not seen her primary doctor or orthopedic surgeon regarding today's concerns. She denies any associated weakness, numbness, or pallor to the extremity. No additional injuries or concerns. She denies any acute traumatic injury to the area. TRAVEL OUTSIDE OF THE [place] IN LAST 30 DAYS: No - Related Data Allergies/Adverse Reactions: codeine [Codeine] Allergy (Verified 10/17/17 17:45) Past Medical History - General Information source: Patient - Social History Smoking Status: Former Smoker Frequency of alcohol use: None Drug Abuse: None Lives with: Spouse/Significant other Family History: Arthritis, CAD, CVA, DM, Hyperlipidemia, Hypertension, Malignancy Patient has suicidal ideation: No Patient has homicidal ideation: No Pulmonary Medical History: Reports: Hx Asthma, Hx Bronchitis Renal/ Medical History: Reports: Hx Ovarian Cysts. Denies: Hx Peritoneal Dialysis Musculoskeltal Medical History: Reports Hx Arthritis - low back, Reports Hx Musculoskeletal Deformity, Reports Hx Musculoskeletal Trauma Traumatic Medical History: Reports: Hx Fractures - Hand Past Surgical History: Reports: Hx Appendectomy, Hx Gynecologic Surgery - Fallopian tubes cleaned out and noted to become , Hx Orthopedic Surgery - Right shoulder - Immunizations Hx Diphtheria, Pertussis, Tetanus Vaccination: Yes Review of Systems - Review of Systems Notes: Constitutional: Negative for fever. HENT: Negative for sore throat. Eyes: Negative for visual changes. Cardiovascular: Negative for chest pain. Respiratory: Negative for shortness of breath. Gastrointestinal: Negative for abdominal pain, vomiting or diarrhea. Genitourinary: Negative for dysuria. Musculoskeletal: Positive right shoulder pain Skin: Negative for rash. Neurological: Negative for headaches, weakness or numbness. 10 point ROS negative except as marked above and in HPI. Physical Exam - Vital signs Vitals: Temp Pulse Resp BP Pulse Ox 98.0 F 93 20 109/69 99 11/06/17 00:48 11/06/17 00:48 11/06/17 00:48 11/06/17 00:48 11/06/17 00:48 Interpretation: Normal Notes: PHYSICAL EXAMINATION: GENERAL: Well-appearing, well-nourished and in no acute distress. HEAD: Atraumatic, normocephalic. EYES: Pupils equal round and reactive to light, extraocular movements intact, sclera anicteric, conjunctiva are normal. ENT: nares patent, oropharynx clear without exudates. Moist mucous membranes. NECK: Normal range of motion, supple without lymphadenopathy LUNGS: Breath sounds clear to auscultation bilaterally and equal. No wheezes rales or rhonchi. HEART: Regular rate and rhythm without murmurs. 2+ radial pulses bilaterally. Capillary refill is less than 2 seconds in all digits of the right hand ABDOMEN: Soft, nontender, normoactive bowel sounds. No guarding, no rebound. No masses appreciated. EXTREMITIES: Patient is unable to perform range of motion of the right shoulder pain. RMU motor and sensory distribution is intact. NEUROLOGICAL: No focal neurological deficits. Moves all extremities spontaneously and on command. PSYCH: Normal mood, normal affect. SKIN: Warm, Dry, normal turgor, no rashes or lesions noted. Course - Re-evaluation Re-evalutation: 11/06/17 02:51 No evidence of a septic joint, gout flare, dislocation, or fracture on exam and imaging. Suspect likely ligamentous injury. Vitals wnl. At this time, I do not see an indication for labs or further imaging. At this time will discharge with return precautions and follow-up recommendations. Verbal discharge instructions given a the bedside and opportunity for questions given. Medication warnings reviewed. Patient is in agreement with this plan and has verbalized understanding of return precautions and the need for primary care follow-up in the next 24-72 hours. - Vital Signs Vital signs: Temp Pulse Resp BP Pulse Ox 98.0 F 93 20 109/69 99 11/06/17 00:48 11/06/17 00:48 11/06/17 00:48 11/06/17 00:48 11/06/17 00:48 - Diagnostic Test Radiology reviewed: Image reviewed, Reports reviewed Radiology results interpreted by me: 11/06/17 02:51 Right shoulder x-ray: No acute fracture or dislocation Discharge - Discharge Clinical Impression: Right shoulder pain Qualifiers: Chronicity: acute Qualified Code(s): M25.511 - Pain in right shoulder Condition: Good Disposition: HOME, SELF-CARE Additional Instructions: Your x-ray does not show any acute fracture today. You likely have a ligamentous strain. For your pain: Take ibuprofen 600 mg and acetaminophen 1000 mg every 6 hours together as needed for pain. If this does not control your pain you may take 15 mg of oral morphine every 4 hours as needed. Please be very careful about using the oral morphine and only use this for severe pain. Continue to apply ice to the area is much your able. Please follow-up with your primary care physician if you do not have improving your symptoms in the next 1-2 weeks. Please return immediately if you develop weakness, numbness , spreading redness from the area, or any other symptoms that are concerning to you. Prescriptions: Morphine Sulfate [Morphine Ir 15 mg Tablet] 15 mg PO Q4HP PRN #6 tablet PRN Reason: Forms: Return to Work
== END 2017-11-06 03:09 | disposition home or self-care (01) ==
LOC: ER 00:18
DX: M25.511 Pain in right shoulder (principal); X50.0XXA Overexertion from strenuous movement or load, initial encounter; Z87.891 Personal history of nicotine dependence
CPT/HCPCS: 99283

== ENCOUNTER 2018-01-01 08:18 | Emergency (ER) | payer SELFPAY ==
[2018-01-01] MEDS ORDERED: MECLIZINE HCL 25 MG TABLET PO ONE (09:25)
[2018-01-01] MEDS ORDERED: NORMAL SALINE 1000 ML 1,000 ML IV ONE (09:25)
--- NOTE | 2018-01-01 09:34 | ER Document Report ---
HPI - HPI Patient complains to provider of: Dizziness, cough Onset: Other - Dizzy 4 days, cough 2 days Onset/Duration: Persistent Quality of pain: Achy Pain Level: 3 Context: Patient presents complaining of dizziness after she stands from a squatting position for the past 4 days. Patient states dizziness worsens with position changes. Patient additionally reports cough for the past 2 days. Patient reports sinus pressure and congestion. Patient does complain of nausea. Patient denies any vomiting or diarrhea. Patient denies any chest pain or dyspnea. Patient denies fever. Associated Symptoms: Nonproductive cough, Nausea, Rhinnorhea, Sinus pain/ drainage. denies: Diarrhea, Drooling, Fever, Headache, Vomiting, Sore throat Exacerbated by: Other - Position changes Relieved by: Denies Similar symptoms previously: No Recently seen / treated by doctor: No - ROS ROS below otherwise negative: Yes Systems Reviewed and Negative: Yes All other systems reviewed and negative - CONSTITUTIONAL Constitutional: DENIES: Fever, Chills - EENT EENT: REPORTS: Nasal Drainage-Clear, Congestion - NEURO Neurology: REPORTS: Dizzinesss / Vertigo. DENIES: Headache - CARDIOVASCULAR Cardiovascular: DENIES: Chest pain - RESPIRATORY Respiratory: REPORTS: Coughing. DENIES: Trouble Breathing - GASTROINTESTINAL Gastrointestinal: REPORTS: Nausea. 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 Denies: Hx Peritoneal Dialysis Musculoskeltal Medical History: Reports Hx Arthritis - low back, Reports Hx Musculoskeletal Deformity, Reports Hx Musculoskeletal Trauma Traumatic Medical History: Reports: Hx Fractures - Hand Past Surgical History: Reports: Hx Appendectomy, Hx Gynecologic Surgery - Fallopian tubes cleaned out and noted to become , Hx Orthopedic Surgery - Right shoulder - Immunizations Hx Diphtheria, Pertussis, Tetanus Vaccination: Yes Vertical Provider Document - CONSTITUTIONAL Agree With Documented VS: Yes Exam Limitations: No Limitations General Appearance: WD/WN, No Apparent Distress - INFECTION CONTROL TRAVEL OUTSIDE OF THE [place] IN LAST 30 DAYS: No - HEENT HEENT: Atraumatic, Normocephalic. negative: Pharyngeal Exudate, Pharyngeal Tenderness, Pharyngeal Erythema, Tympanic Membrane Red, Tympanic Membrane Bulging Notes: Clear rhinorrhea, swollen nasal mucosa - NECK Neck: Normal Inspection, Supple. negative: Lymphadenopathy-Left, Lymphadenopathy-Right - RESPIRATORY Respiratory: Breath Sounds Normal, No Respiratory Distress, Chest Non-Tender. negative: Rales, Rhonchi, Wheezing O2 Sat by Pulse Oximetry: 100 - CARDIOVASCULAR Cardiovascular: Regular Rate, Regular Rhythm, No Murmur - GI/ABDOMEN Gastrointestinal: Abdomen Soft, Abdomen Non-Tender - BACK Back: Normal Inspection - MUSCULOSKELETAL/EXTREMETIES Musculoskeletal/Extremeties: NIXON TELLEZ - NEURO Level of Consciousness: Awake, Alert, Appropriate Motor/Sensory: No Motor Deficit - DERM Integumentary: Warm, Dry, No Rash Course - Vital Signs Vital signs: Temp Pulse Resp BP Pulse Ox 98.6 F 97 20 127/64 H 100 01/01/18 08:32 01/01/18 08:32 01/01/18 08:32 01/01/18 08:32 01/01/18 08:32 - Laboratory Result Diagrams: 01/01/18 09:59 01/01/18 09:59 Laboratory results interpreted by me: 01/01/18 11:39 Labs- Entire Visit 01/01/18 01/01/18 09:59 09:59 WBC 9.3 RBC 5.06 Hgb 14.8 Hct 43.3 MCV 86 MCH 29.3 MCHC 34.3 RDW 13.2 Plt Count 347 Seg Neutrophils % 67.1 Lymphocytes % 25.5 Monocytes % 5.7 Eosinophils % 1.2 Basophils % 0.5 Absolute Neutrophils 6.3 Absolute Lymphocytes 2.4 Absolute Monocytes 0.5 Absolute Eosinophils 0.1 Absolute Basophils 0.0 Sodium 139.6 Potassium 4.2 Chloride 103 Carbon Dioxide 27 Anion Gap 10 BUN 9 Creatinine 0.64 Est GFR ( Amer) > 60 Est GFR (Non-Af Amer) > 60 Glucose 97 Calcium 10.2 Total Bilirubin 0.3 Direct Bilirubin 0.2 Neonat Total Bilirubin Not Reportable Neonat Direct Bilirubin Not Reportable Neonat Indirect Bili Not Reportable AST 21 ALT 36 Alkaline Phosphatase 80 Total Protein 7.4 Albumin 4.2 - Diagnostic Test Radiology reviewed: Reports reviewed - EKG Interpretation by Me EKG shows normal: Sinus rhythm Rate: Normal Discharge - Discharge Clinical Impression: Vertigo Upper respiratory infection Qualifiers: URI type: unspecified URI Qualified Code(s): J06.9 - Acute upper respiratory infection, unspecified Condition: Stable Disposition: HOME, SELF-CARE Instructions: Meclizine ([facility]), Upper Respiratory Illness ([facility]), Vertigo ([facility]) Additional Instructions: Return immediately for any new or worsening symptoms Followup with your primary care provider, call tomorrow to make a followup appointment Stay well-hydrated You may take [id number] Mucinex to help with congestion symptoms Prescriptions: Benzonatate [Tessalon Perle 100 mg Capsule] 100 mg PO Q8HP PRN #20 cap PRN Reason: Meclizine HCl [Antivert 25 mg Tablet] 25 mg PO ASDIR PRN #12 tablet PRN Reason: Forms: Return to Work Referrals: [facility] [Provider Group] - [facility] - Follow up as needed
--- NOTE | 2018-01-01 10:37 | RADIOLOGY REPORT (SQ) ---
EXAM DESCRIPTION: CHEST PA/LAT COMPLETED DATE/TIME: 01/01/2018 10:06 am REASON FOR STUDY: cough COMPARISON: 10/17/2017. EXAM PARAMETERS: NUMBER OF VIEWS: two views TECHNIQUE: Digital Frontal and Lateral radiographic views of the chest acquired. RADIATION DOSE: NA LIMITATIONS: none FINDINGS: LUNGS AND PLEURA: No infiltrates, masses or pneumothorax. No pleural effusion. MEDIASTINUM AND HILAR STRUCTURES: No masses or contour abnormalities. HEART AND VASCULAR STRUCTURES: Heart normal size. No evidence for failure. BONES: No acute findings. HARDWARE: None in the chest. OTHER: No other significant finding. IMPRESSION: NO ACUTE DISEASE. TECHNICAL DOCUMENTATION: JOB ID: [id number] [id number] 2010 [employer]- All Rights Reserved
[2018-01-01 11:10] LABS: ABSOLUTE EOSINOPHILS # (AUTO) 0.1 10^3/uL (0.0-0.6); ABSOLUTE LYMPHOCYTES (AUTO) 2.4 10^3/uL (0.5-4.7); ABSOLUTE MONOCYTES (AUTO) 0.5 10^3/uL (0.1-1.4); ABSOLUTE NEUT (AUTO) 6.3 10^3/uL (1.7-8.2); BASOPHILS % (AUTO) 0.5 % (0-2); EOSINOPHILS % (AUTO) 1.2 % (0-6); HEMATOCRIT 43.3 % (36.0-47.0); HEMOGLOBIN 14.8 g/dL (12.0-15.5); LYMPHOCYTES % (AUTO) 25.5 % (13-45); MEAN CORPUSCULAR HEMOGLOBIN 29.3 pg (27.0-33.4); MEAN CORPUSCULAR HGB CONC 34.3 g/dL (32.0-36.0); MEAN CORPUSCULAR VOLUME 86 fl (80-97); MONOCYTES % (AUTO) 5.7 % (3-13); PLATELET COUNT 347 10^3/uL (150-450); RED BLOOD COUNT 5.06 10^6/uL (3.72-5.28); RED CELL DISTRIBUTION WIDTH 13.2 % (11.5-14.0); SEGMENTED NEUTROPHILS % (AUTO) 67.1 % (42-78); TOTAL CELLS COUNTED % (AUTO) 100 %; WHITE BLOOD COUNT 9.3 10^3/uL (4.0-10.5)
[2018-01-01 11:30] LABS: ALANINE AMINOTRANSFERASE 36 U/L (9-52); ALBUMIN 4.2 g/dL (3.5-5.0); ALKALINE PHOSPHATASE 80 U/L (38-126); ANION GAP 10 (5-19); ASPARTATE AMINO TRANSFERASE 21 U/L (14-36); BILIRUBIN,DIRECT 0.2 mg/dL (0.0-0.4); BILIRUBIN,TOTAL 0.3 mg/dL (0.2-1.3); BLOOD UREA NITROGEN 9 mg/dL (7-20); CALCIUM 10.2 mg/dL (8.4-10.2); CARBON DIOXIDE 27 mmol/L (22-30); CHLORIDE 103 mmol/L (98-107); GLUCOSE 97 mg/dL (75-110); POTASSIUM 4.2 mmol/L (3.6-5.0); SODIUM 139.6 mmol/L (137-145); TOTAL PROTEIN 7.4 g/dL (6.3-8.2)
[2018-01-01 12:23] VITALS: BP 101/57
--- NOTE | 2018-01-01 13:32 | EKG REPORT ---
SEVERITY:- NORMAL ECG - SINUS RHYTHM : Confirmed by: Fritz Terry MD 01-Jan-2018 13:31:34
== END 2018-01-01 12:20 | disposition home or self-care (01) ==
LOC: ER 08:18
DX: J06.9 Acute upper respiratory infection, unspecified (principal); R42 Dizziness and giddiness; R05 Cough; R09.81 Nasal congestion; R11.0 Nausea
CPT/HCPCS: 93005; 99284; 96360; 36415; 87070; 87880; 85025; 80053; 71046; 93010; J7030

== ENCOUNTER 2018-12-07 11:41 | Emergency (ER) | payer SELFPAY ==
[2018-12-07 11:46] VITALS: BP 134/66
[2018-12-07] MEDS ORDERED: BENZONATATE 100 MG CAPSULE PO ONE (12:38)
--- NOTE | 2018-12-07 13:25 | ER Document Report ---
ED Flu Like - General Chief Complaint: Flu Symptoms Stated Complaint: COUGH Time Seen by Provider: 12/07/18 12:07 Mode of Arrival: Ambulatory Information source: Patient Notes: 38-year-old female presents to ED for cough cold congestion flulike symptoms times 3 days. She states she has been taken Nella-Ringold plus. She states she has been having fevers chills body aches and cough. Patient is alert and oriented respirations regular and unlabored lungs clear to auscultation. TRAVEL OUTSIDE OF THE [place] IN LAST 30 DAYS: No - HPI Onset: Other - 3 days Timing/Duration: Persistent Quality of pain: Achy - Body aches Severity: Moderate Pain Level: 2 CO exposure: No Associated symptoms: Body/muscle aches, Chills, Nonproductive cough, Fever, Rhinnorhea, Sinus pain/drainage Similar symptoms previously: Yes Recently seen / treated by doctor: No - Related Data Allergies/Adverse Reactions: codeine [Codeine] Allergy (Verified 12/07/18 11:41) Past Medical History - General Information source: Patient - Social History Smoking Status: Never Smoker Cigarette use (# per day): No Chew tobacco use (# tins/day): No Smoking Education Provided: No Frequency of alcohol use: None Drug Abuse: None 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 Lives with: Family Family History: Arthritis, CAD, CVA, DM, Hyperlipidemia, Hypertension, Malignancy Patient has suicidal ideation: No Patient has homicidal ideation: No - Past Medical History Cardiac Medical History: Reports: None Pulmonary Medical History: Reports: Hx Asthma, Hx Bronchitis EENT Medical History: Reports: None Neurological Medical History: Reports: None Endocrine Medical History: Reports: None Renal/ Medical History: Reports: Hx Ovarian Cysts Malignancy Medical History: Reports: None GI Medical History: Reports: None Musculoskeletal Medical History: Reports Hx Arthritis - low back, Reports Hx Musculoskeletal Deformity, Reports Hx Musculoskeletal Trauma Skin Medical History: Reports None Psychiatric Medical History: Reports: None Traumatic Medical History: Reports: Hx Fractures - Hand Infectious Medical History: Reports: None Past Surgical History: Reports: Hx Appendectomy, Hx Gynecologic Surgery - Fallopian tubes cleaned out and noted to become , Hx Orthopedic Surgery - Right shoulder - Immunizations Hx Diphtheria, Pertussis, Tetanus Vaccination: Yes Review of Systems - Review of Systems Constitutional: Chills, Fever, Recent illness EENT: Nose congestion, Nose discharge, Sinus pressure, Sinus discharge Cardiovascular: No symptoms reported Respiratory: Cough Gastrointestinal: No symptoms reported Genitourinary: No symptoms reported Female Genitourinary: No symptoms reported Musculoskeletal: No symptoms reported Skin: No symptoms reported Hematologic/Lymphatic: No symptoms reported Neurological/Psychological: No symptoms reported Physical Exam - Vital signs Vitals: Temp Pulse Resp BP Pulse Ox 98.9 F 100 18 134/66 H 98 12/07/18 11:44 12/07/18 11:44 12/07/18 11:44 12/07/18 11:44 12/07/18 11:44 Interpretation: Normal - General General appearance: Appears well, Alert - HEENT Head: Normocephalic, Atraumatic Eyes: Normal Pupils: PERRL Ears: Normal External canal: Normal Tympanic membrane: Normal Sinus: Normal Nasal: Purulent discharge, Swelling Mouth/Lips: Normal Mucous membranes: Normal Pharynx: Post nasal drainage Neck: Normal - Respiratory Respiratory status: No respiratory distress Chest status: Nontender Breath sounds: Nonproductive cough Chest palpation: Normal - Cardiovascular Rhythm: Regular Heart sounds: Normal auscultation Murmur: No - Abdominal Inspection: Normal Distension: No distension Bowel sounds: Normal Tenderness: Nontender Organomegaly: No organomegaly - Back Back: Normal, Nontender - Extremities General upper extremity: Normal inspection, Nontender, Normal color, Normal ROM, Normal temperature General lower extremity: Normal inspection, Nontender, Normal color, Normal ROM, Normal temperature, Normal weight bearing. No: Aubrie's sign - Neurological Neuro grossly intact: Yes Cognition: Normal Orientation: AAOx4 [place] Coma Scale Eye Opening: Spontaneous [place] Coma Scale Verbal: Oriented [place]smar Coma Scale Motor: Obeys Commands Osmar Coma Scale Total: 15 Speech: Normal Motor strength normal: LUE, RUE, LLE, RLE Sensory: Normal - Psychological Associated symptoms: Normal affect, Normal mood - Skin Skin Temperature: Warm Skin Moisture: Dry Skin Color: Normal Course - Re-evaluation Re-evalutation: 12/07/18 22:35 After performing a Medical Screening Examination, I estimate there is LOW risk for ACUTE CORONARY SYNDROME, RESPIRATORY FAILURE, SEPSIS OR MENINGITIS, thus I consider the discharge disposition reasonable. I have reevaluated this patient multiple times and no significant life threatening changes are noted. The patient and I have discussed the diagnosis and risks, and we agree with discharging home with close follow-up. We also discussed returning to the Emergency Department immediately if new or worsening symptoms occur. We have discussed the symptoms which are most concerning (e.g., changing or worsening pain, trouble swallowing or breathing, neck stiffness, fever) that necessitate immediate return. - Vital Signs Vital signs: Temp Pulse Resp BP Pulse Ox 98.9 F 100 18 134/66 H 98 12/07/18 11:44 12/07/18 11:44 12/07/18 11:44 12/07/18 11:44 12/07/18 11:44 - Diagnostic Test Radiology reviewed: Image reviewed, Reports reviewed Discharge - Discharge Clinical Impression: URI (upper respiratory infection) Qualifiers: URI type: unspecified URI Qualified Code(s): J06.9 - Acute upper respiratory infection, unspecified Condition: Stable Disposition: HOME, SELF-CARE Instructions: Family Physicians / Practices Additional Instructions: UPPER RESPIRATORY ILLNESS: You have a viral infection of the respiratory passages -- a "cold." This common infection causes nasal congestion, drainage, and often sore throat and cough. It is highly contagious. The disease usually lasts about 10 to 14 days. There is no "cure" for the viral infection -- it must run its course. If there is a complication, such as bacterial infection in the nose, sinuses, middle ear, or bronchial tubes, antibiotics may be required. The antibiotics won't affect the virus. Drink plenty of fluids. A humidifier may help. An expectorant medication or decongestant may make you more comfortable. Use acetaminophen or ibuprofen for fever or aches. See the doctor if fever persists over two days, if there is any significant worsening of your symptoms, or if you simply fail to improve as expected. COUGH-SUPPRESSANT & EXPECTORANT MEDICATION: You are to use a cough medication as needed for relief of symptoms. This medicine is a combination of an expectorant (to make the mucous thinner and more easily "coughed up") and a cough suppressant (to reduce the frequency of coughing). The cough-suppressant medicine is related to narcotics. You may experience mild nausea and sleepiness. Some patients who are very sensitive to narcotics may have stomach pain from this medicine. Taking the medicine with food reduces these side effects. Do not drive or work with machinery until you know how this medicine affects you. The expectorant should have no side effects. Iodine-containing expectorants (such as organidin) should not be taken by persons with active thyroid disease unless approved by your doctor. Call the doctor if you develop shortness of breath, hives, rash, itching, lightheadedness, or severe nausea and vomiting. USE OF ACETAMINOPHEN (Tylenol): Acetaminophen may be taken for pain relief or fever control. It's much safer than aspirin, offering a wider range of "safe" dosages. It is safe during . Some brand names are Tylenol, Panadol, Datril, Anacin 3, Tempra, and Liquiprin. Acetaminophen can be repeated every four hours. The following are maximum recommended dosages: >89 pounds or adults 650 mg to 900 mg Acetaminophen can be repeated every four hours. Maximum dose not to exceed 4000 mg a day. I gave you a written results of your chest x-ray. I have discussed the results with you. Please have a follow-up x-ray to compare with this x-ray. FOLLOW-UP CARE: If you have been referred to a physician for follow-up care, call the physicians office for an appointment as you were instructed or within the next two days. If you experience worsening or a significant change in your symptoms, notify the physician immediately or return to the Emergency Department at any time for re-evaluation. Forms: Elevated Blood Pressure, Return to Work
--- NOTE | 2018-12-07 13:44 | RADIOLOGY REPORT (SQ) ---
EXAM DESCRIPTION: CHEST 2 VIEWS COMPLETED DATE/TIME: 12/07/2018 1:07 pm REASON FOR STUDY: cough congestion chills COMPARISON: None. EXAM PARAMETERS: NUMBER OF VIEWS: two views TECHNIQUE: Digital Frontal and Lateral radiographic views of the chest acquired. RADIATION DOSE: NA LIMITATIONS: none FINDINGS: LUNGS AND PLEURA: No acute infiltrates or effusions. Chronic right pleural thickening. MEDIASTINUM AND HILAR STRUCTURES: No masses or contour abnormalities. HEART AND VASCULAR STRUCTURES: The heart is normal. The pulmonary vasculature is normal. BONES: No acute findings. HARDWARE: None in the chest. OTHER: No other significant finding. IMPRESSION: No acute disease. TECHNICAL DOCUMENTATION: JOB ID: [id number] [employer]- All Rights Reserved Reading location - IP/workstation name: [email or web address]
== END 2018-12-07 15:01 | disposition home or self-care (01) ==
LOC: ER 11:41
DX: J06.9 Acute upper respiratory infection, unspecified (principal); R05 Cough; R50.9 Fever, unspecified; M79.10 Myalgia, unspecified site; J34.89 Other specified disorders of nose and nasal sinuses; J45.909 Unspecified asthma, uncomplicated; R09.81 Nasal congestion; R09.82 Postnasal drip
CPT/HCPCS: 71046; 99283

== ENCOUNTER 2018-12-31 10:35 | Emergency (ER) | payer SELFPAY ==
[2018-12-31 10:54] VITALS: BP 136/85
--- NOTE | 2018-12-31 12:02 | ER Document Report ---
HPI - HPI Time Seen by Provider: 12/31/18 11:46 Pain Level: 0 Notes: Patient is a 48-year-old female with no significant past medical history who presents emergency department complaining of a dry nonproductive cough over the last month. Patient was seen a few weeks ago and was diagnosed with an upper respiratory infection with an unremarkable x-ray at that time. Patient states that she has been eating and drinking without difficulties. She is urinating normally and having normal bowel movements. She does not have any dyspnea on exertion or shortness of breath. Denies any headache, fever, neck pain, URI, sore throat, chest pain, palpitations, syncope, shortness of breath, wheeze, dyspnea, abdominal pain, nausea/vomiting/diarrhea, urinary retention, dysuria, hematuria, or rash. Denies DM history. - ROS Systems Reviewed and Negative: Yes All other systems reviewed and negative - RESPIRATORY Respiratory: REPORTS: Coughing - REPRODUCTIVE Reproductive: DENIES: : Past Medical History - Social History Smoking Status: Never Smoker Family History: Arthritis, CAD, CVA, DM, Hyperlipidemia, Hypertension, Malignancy Patient has suicidal ideation: No Patient has homicidal ideation: No Pulmonary Medical History: Reports: Hx Asthma, Hx Bronchitis Renal/ Medical History: Reports: Hx Ovarian Cysts. Denies: Hx Peritoneal Dialysis Musculoskeletal Medical History: Reports Hx Arthritis - low back, Reports Hx Musculoskeletal Deformity, Reports Hx Musculoskeletal Trauma Traumatic Medical History: Reports: Hx Fractures - Hand Past Surgical History: Reports: Hx Appendectomy, Hx Gynecologic Surgery - Fallopian tubes cleaned out and noted to become , Hx Orthopedic Surgery - Right shoulder - Immunizations Hx Diphtheria, Pertussis, Tetanus Vaccination: Yes Vertical Provider Document - CONSTITUTIONAL Agree With Documented VS: Yes Notes: PHYSICAL EXAMINATION: GENERAL: Well-appearing, well-nourished and in no acute distress. HEAD: Atraumatic, normocephalic. EYES: Pupils equal round and reactive to light, extraocular movements intact, sclera anicteric, conjunctiva are normal. ENT: Nares patent and without discharge. oropharynx clear without exudates. No tonsilar hypertrophy or erythema. Moist mucous membranes. No sinus tenderness. NECK: Normal range of motion, supple without lymphadenopathy LUNGS: Breath sounds clear to auscultation bilaterally and equal. No wheezes rales or rhonchi. HEART: Regular rate and rhythm without murmurs, rubs, gallops. ABDOMEN: Soft, nontender, nondistended abdomen. No guarding, no rebound. No masses appreciated. Normal bowel sounds present. No CVA tenderness bilaterally. Musculoskeletal: FROM to passive/active. Strength 5+/5. Extremities: No cyanosis, clubbing, or edema b/l. Peripheral pulses 2+. Capillary refill less than 3 seconds. NEUROLOGICAL: Cranial nerves grossly intact. Normal speech, normal gait. Normal sensory, motor exams PSYCH: Normal mood, normal affect. SKIN: Warm, Dry, normal turgor, no rashes or lesions noted. - INFECTION CONTROL TRAVEL OUTSIDE OF THE [place] IN LAST 30 DAYS: No Course - Re-evaluation Re-evalutation: 12/31/18 12:15 Patient is an afebrile, well-hydrated, 48-year-old female who presents to the ED with a cough, suspect viral vs post-viral cough. Vitals are acceptable. PE is otherwise unremarkable. CXR unremarkable. No other labs or imaging warranted at this time based on H&P. Patient has no significant cardiopulmonary or immunocompromised medical conditions. Patient's lungs are clear to auscultation bilaterally without tachycardia, hypoxia, or tachypnea. Patient is tolerating p.o. without any difficulties. Low suspicion for any meningitis, sepsis, peritonsillar/pharyngeal abscess, respiratory compromise, severe dehydration, or other emergent systemic condition at this time. Patient is aware this condition can change from initial presentation and she needs to monitor symptoms closely. Rx for steroid taper, no DM history. Conservative measures otherwise for symptoms. Recheck with your PCM in 3-5 days. Return to the ED with any worsening/concerning symptoms otherwise as reviewed in discharge. Patient is in agreement. - Vital Signs Vital signs: Temp Pulse Resp BP Pulse Ox 98.5 F 95 16 136/85 H 99 12/31/18 10:53 12/31/18 10:53 12/31/18 10:53 12/31/18 10:53 12/31/18 10:53 Discharge - Discharge Clinical Impression: Cough Condition: Stable Disposition: HOME, SELF-CARE Additional Instructions: Maintain adequate fluid intake Take meds as directed tylenol/ibuprofen as needed over the counter cold medication as needed for symptoms Humidified air may help Wash your hands regularly Wear a mask when coughing F/u: with your PCM in 3-5 days for a recheck Return to the ED with any fever, worsening pain, chest pain, palpitations, syncope, worsening VINCENT, neck pain/stiffness, shortness of breath, wheezing, drooling, trouble swallowing/breathing, abdominal pain, n/v/d, rash, or worsening/concerning symptoms otherwise. Prescriptions: Dextromethorphan HBr [Robitussin] 15 mg PO TID PRN #30 capsule PRN Reason: Prednisone [Deltasone 10 mg Tablet] 10 mg PO DAILY #18 tablet Forms: Elevated Blood Pressure Referrals: DENVER MARTINEZ MD [ACTIVE STAFF] - Follow up as needed
--- NOTE | 2018-12-31 12:12 | RADIOLOGY REPORT (SQ) ---
EXAM DESCRIPTION: CHEST 2 VIEWS COMPLETED DATE/TIME: 12/31/2018 11:32 am REASON FOR STUDY: cough COMPARISON: Two-view chest 12/07/2018 EXAM PARAMETERS: NUMBER OF VIEWS: two views TECHNIQUE: Digital Frontal and Lateral radiographic views of the chest acquired. RADIATION DOSE: NA LIMITATIONS: none FINDINGS: LUNGS AND PLEURA: No opacities, masses or pneumothorax. No pleural effusion. MEDIASTINUM AND HILAR STRUCTURES: No masses or contour abnormalities. HEART AND VASCULAR STRUCTURES: Heart normal size. No evidence for failure. BONES: No acute findings. HARDWARE: None in the chest. OTHER: No other significant finding. IMPRESSION: NO ACUTE RADIOGRAPHIC FINDING IN THE CHEST. TECHNICAL DOCUMENTATION: JOB ID: [id number] [employer]- All Rights Reserved Reading location - IP/workstation name: [email or web address]
== END 2018-12-31 12:20 | disposition home or self-care (01) ==
LOC: ER 10:35
DX: R05 Cough (principal)
CPT/HCPCS: 71046; 99283

== ENCOUNTER 2019-06-21 14:29 | Emergency (ER) | payer SELFPAY ==
--- NOTE | 2019-06-21 15:58 | ER Document Report ---
ED Medical Screen (RME) - General Chief Complaint: Rectal Bleeding Stated Complaint: BLEEDING FROM RECTUM Time Seen by Provider: 06/21/19 15:49 Notes: 41-year-old female no past medical history presents to the emergency department chief complaint of rectal bleeding since 1330 today. She said she was wiping after going to the bathroom and there was a moderate amount of blood on the toilet paper. She wiped several times after that and there was blood each time but it has been less. Patient denies any constipation or history of hemorrhoids, denies any abdominal pain, denies nausea or vomiting, denies any abdominal surgeries or abdominal disease. No other complaints I have greeted and performed a rapid initial assessment of this patient. A comprehensive ED assessment and evaluation of the patient, analysis of test results and completion of medical decision making process will be conducted by an additional ED providers. TRAVEL OUTSIDE OF THE [place] IN LAST 30 DAYS: No - Related Data Allergies/Adverse Reactions: codeine [Codeine] Allergy (Verified 12/07/18 11:41) Past Medical History - Social History Chew tobacco use (# tins/day): No Frequency of alcohol use: None Drug Abuse: None Pulmonary Medical History: Reports: Hx Asthma, Hx Bronchitis Renal/ Medical History: Reports: Hx Ovarian Cysts. Denies: Hx Peritoneal Dialysis Musculoskeltal Medical History: Reports Hx Arthritis - low back, Reports Hx Musculoskeletal Deformity, Reports Hx Musculoskeletal Trauma Traumatic Medical History: Reports: Hx Fractures - Hand Past Surgical History: Reports: Hx Appendectomy, Hx Gynecologic Surgery - Fallopian tubes cleaned out and noted to become , Hx Orthopedic Surgery - Right shoulder - Immunizations Hx Diphtheria, Pertussis, Tetanus Vaccination: Yes Physical Exam - Vital signs Vitals: Temp Pulse Resp BP Pulse Ox 98.7 F 93 18 117/68 96 06/21/19 14:33 06/21/19 14:33 06/21/19 14:33 06/21/19 14:33 06/21/19 14:33 - Notes Notes: PHYSICAL EXAMINATION: Reviewed vital signs and charting by RN GENERAL: Alert, interacts well. No acute distress. HEAD: Normocephalic, atraumatic. EYES: Pupils equal and round. Extraocular movements intact. ENT: Oral mucosa moist, tongue midline. NECK: Full range of motion. Trachea midline. LUNGS: Clear to auscultation bilaterally, no wheezes, rales, or rhonchi. No respiratory distress. HEART: Regular rate and rhythm. No murmur ABDOMEN: Deferred in triage EXTREMITIES: Moves all 4 extremities spontaneously. No edema, No cyanosis. PSYCH: Normal affect, normal mood. SKIN: Warm, dry, normal turgor. No rashes or lesions noted. Course - Vital Signs Vital signs: Temp Pulse Resp BP Pulse Ox 98.7 F 93 18 117/68 96 06/21/19 14:33 06/21/19 14:33 06/21/19 14:33 06/21/19 14:33 06/21/19 14:33
[2019-06-21 16:21] LABS: ABSOLUTE EOSINOPHILS # (AUTO) 0.1 10^3/uL (0.0-0.6); ABSOLUTE LYMPHOCYTES (AUTO) 3.3 10^3/uL (0.5-4.7); ABSOLUTE MONOCYTES (AUTO) 0.5 10^3/uL (0.1-1.4); ABSOLUTE NEUT (AUTO) 6.6 10^3/uL (1.7-8.2); BASOPHILS % (AUTO) 0.4 % (0-2); EOSINOPHILS % (AUTO) 1.3 % (0-6); HEMATOCRIT 44.2 % (36.0-47.0); LYMPHOCYTES % (AUTO) 31.1 % (13-45); MEAN CORPUSCULAR HEMOGLOBIN 28.6 pg (27.0-33.4); MEAN CORPUSCULAR VOLUME 84 fl (80-97); MONOCYTES % (AUTO) 4.7 % (3-13); PLATELET COUNT 376 10^3/uL (150-450); RED BLOOD COUNT 5.25 10^6/uL (3.72-5.28); RED CELL DISTRIBUTION WIDTH 13.2 % (11.5-14.0); SEGMENTED NEUTROPHILS % (AUTO) 62.5 % (42-78); TOTAL CELLS COUNTED % (AUTO) 100 %; WHITE BLOOD COUNT 10.5 10^3/uL (4.0-10.5)
[2019-06-21 16:22] LABS: APPEARANCE,URINE SLIGHTLY-CLOUDY; BILIRUBIN,URINE NEGATIVE (NEGATIVE); COLOR,URINE YELLOW; GLUCOSE, URINE NEGATIVE (NEGATIVE); KETONES,URINE NEGATIVE (NEGATIVE); LEUKOCYTE ESTERASE,URINE NEGATIVE (NEGATIVE); NITRITE,URINE NEGATIVE (NEGATIVE); PROTEIN,URINE NEGATIVE (NEGATIVE); URINE SPECIFIC GRAVITY 1.019
[2019-06-21 16:26] LABS: INTERNATIONAL RATION (INR) 0.88; PROTHROMBIN TIME 11.9 SEC (11.4-15.4)
[2019-06-21 16:40] LABS: ALANINE AMINOTRANSFERASE 18 U/L (9-52); ALBUMIN 4.2 g/dL (3.5-5.0); ALKALINE PHOSPHATASE 93 U/L (38-126); ANION GAP 11 (5-19); ASPARTATE AMINO TRANSFERASE 20 U/L (14-36); BILIRUBIN,DIRECT 0.2 mg/dL (0.0-0.4); BILIRUBIN,TOTAL 0.3 mg/dL (0.2-1.3); BLOOD UREA NITROGEN 10 mg/dL (7-20); CALCIUM 9.8 mg/dL (8.4-10.2); CARBON DIOXIDE 28 mmol/L (22-30); CHLORIDE 99 mmol/L (98-107); GLUCOSE 124 mg/dL (75-110); POTASSIUM 4.1 mmol/L (3.6-5.0); SODIUM 137.7 mmol/L (137-145); TOTAL PROTEIN 7.4 g/dL (6.3-8.2)
--- NOTE | 2019-06-21 19:41 | ER Document Report ---
ED General - General Chief Complaint: Rectal Bleeding Stated Complaint: BLEEDING FROM RECTUM Time Seen by Provider: 06/21/19 15:49 TRAVEL OUTSIDE OF THE [place] IN LAST 30 DAYS: No - HPI Notes: Patient is a 49-year-old female presents emergency department for evaluation of rectal bleeding. She states that she noticed it after using the restroom earlier today. She states had a bowel movement in the morning that was rather loose. This is after drinking milk, it is not uncommon for her to have loose bowel movements following this. She states later in the day she went to urinate and noticed blood on her toilet paper. It became apparent to her investigations of the bleeding was coming from the rectum. She denies any abdominal pain. No rectal pain. No recent significant constipation. No fevers or chills, no nausea or vomiting, no trauma to the area. She has never had a colonoscopy. She denies any history of premature colon cancer in the family, although she states her grandmother had colon cancer. - Related Data Allergies/Adverse Reactions: codeine [Codeine] Allergy (Verified 12/07/18 11:41) Past Medical History - General Information source: Patient - Social History Smoking Status: Former Smoker Chew tobacco use (# tins/day): No Frequency of alcohol use: None Drug Abuse: None Family History: Arthritis, CAD, CVA, DM, Hyperlipidemia, Hypertension, Malignancy Patient has suicidal ideation: No Patient has homicidal ideation: No Pulmonary Medical History: Reports: Hx Asthma, Hx Bronchitis Renal/ Medical History: Reports: Hx Ovarian Cysts. Denies: Hx Peritoneal Dialysis Musculoskeletal Medical History: Reports Hx Arthritis - low back, Reports Hx Musculoskeletal Deformity, Reports Hx Musculoskeletal Trauma Traumatic Medical History: Reports: Hx Fractures - Hand Past Surgical History: Reports: Hx Appendectomy, Hx Gynecologic Surgery - Fallopian tubes cleaned out and noted to become , Hx Orthopedic Surgery - Right shoulder - Immunizations Hx Diphtheria, Pertussis, Tetanus Vaccination: Yes Review of Systems - Review of Systems Constitutional: No symptoms reported EENT: No symptoms reported Cardiovascular: No symptoms reported Respiratory: No symptoms reported Gastrointestinal: See HPI Genitourinary: No symptoms reported Female Genitourinary: No symptoms reported Musculoskeletal: No symptoms reported Skin: No symptoms reported Neurological/Psychological: No symptoms reported Physical Exam - Vital signs Vitals: Temp Pulse Resp BP Pulse Ox 98.7 F 93 18 117/68 96 06/21/19 14:33 06/21/19 14:33 06/21/19 14:33 06/21/19 14:33 06/21/19 14:33 - Notes Notes: Vital signs reviewed, please refer to chart. Head is normocephalic, atraumatic. Pupils equal round, reactive to light. Neck is supple without meningismus. Heart is regular rate and rhythm. Lungs are clear to auscultation bilaterally. Abdomen is soft, nontender, normoactive bowel sounds throughout. Rectal exam is performed. She does have some dried red blood at the rectal orifice. She has a mildly engorged hemorrhoid with evidence of recent bleeding. No apparent masses noted. Extremities without cyanosis, clubbing. Posterior calves are nontender. Peripheral pulses are equal. Skin is warm and dry. Patient is awake, alert, neurological exam is nonfocal. Course - Re-evaluation Re-evalutation: 06/21/19 19:38 Patient presents emergency department for evaluation of rectal bleeding. I did identify a bleeding external hemorrhoid. I explained to the patient in great detail that the presence of this hemorrhoid could not rule out colon cancer or another possible etiology of GI bleeding. I strongly encouraged her to follow- up with primary care, I received gastroneurology referral for colonoscopy. She voiced understanding to this. Her hemoglobin is normal. Her vitals are stable. Otherwise she is given instructions on hemorrhoids and GI bleeding. She is to return to the ED with worsening or concerning symptoms of any sort. - Vital Signs Vital signs: Temp Pulse Resp BP Pulse Ox 98.7 F 93 18 117/68 96 06/21/19 14:33 06/21/19 14:33 06/21/19 14:33 06/21/19 14:33 06/21/19 14:33 - Laboratory Result Diagrams: 06/21/19 16:07 06/21/19 16:07 Laboratory results interpreted by me: 06/21/19 06/21/19 16:07 16:07 Glucose 124 H Urine Blood SMALL H Urine Urobilinogen 2.0 H Discharge - Discharge Clinical Impression: External hemorrhoid, bleeding GI bleed Qualifiers: GI bleed type/associated pathology: anorectal hemorrhage Qualified Code(s): K62.5 - Hemorrhage of anus and rectum Condition: Stable Disposition: HOME, SELF-CARE Instructions: Hemorrhoids ([facility]) Additional Instructions: There were hemorrhoids noted on your exam today. As discussed, you should have a colonoscopy to further evaluate possible causes of rectal bleeding. Follow-up with your primary care provider in 1 to 2 weeks. If you develop increased pain, worsening bleeding, or any other new or concerning symptoms, return immediately to the emergency department for further evaluation. Referrals: [facility] [NO LOCAL MD] - Follow up as needed
[2019-06-21 19:56] VITALS: BP 111/67
== END 2019-06-21 19:55 | disposition home or self-care (01) ==
LOC: ER 14:29
DX: K64.4 Residual hemorrhoidal skin tags (principal); K62.5 Hemorrhage of anus and rectum; R19.7 Diarrhea, unspecified; Z87.891 Personal history of nicotine dependence
CPT/HCPCS: 36415; 80053; 81001; 81025; 85025; 85610; 99283

== ENCOUNTER 2019-08-25 08:22 | Emergency (ER) | payer BC ==
[2019-08-25 09:06] LABS: ABSOLUTE BASOPHILS # (AUTO) 0.1 10^3/uL (0.0-0.2); ABSOLUTE EOSINOPHILS # (AUTO) 0.1 10^3/uL (0.0-0.6); ABSOLUTE LYMPHOCYTES (AUTO) 2.7 10^3/uL (0.5-4.7); ABSOLUTE MONOCYTES (AUTO) 0.4 10^3/uL (0.1-1.4); ABSOLUTE NEUT (AUTO) 4.6 10^3/uL (1.7-8.2); BASOPHILS % (AUTO) 1.2 % (0-2); EOSINOPHILS % (AUTO) 1.4 % (0-6); HEMATOCRIT 38.1 % (36.0-47.0); HEMOGLOBIN 12.9 g/dL (12.0-15.5); LYMPHOCYTES % (AUTO) 34.5 % (13-45); MEAN CORPUSCULAR HEMOGLOBIN 28.5 pg (27.0-33.4); MEAN CORPUSCULAR HGB CONC 33.9 g/dL (32.0-36.0); MEAN CORPUSCULAR VOLUME 84 fl (80-97); MONOCYTES % (AUTO) 5.2 % (3-13); PLATELET COUNT 348 10^3/uL (150-450); RED BLOOD COUNT 4.52 10^6/uL (3.72-5.28); RED CELL DISTRIBUTION WIDTH 13.2 % (11.5-14.0); SEGMENTED NEUTROPHILS % (AUTO) 57.7 % (42-78); TOTAL CELLS COUNTED % (AUTO) 100 %; WHITE BLOOD COUNT 7.9 10^3/uL (4.0-10.5)
[2019-08-25 09:08] LABS: APPEARANCE,URINE CLEAR; BILIRUBIN,URINE NEGATIVE (NEGATIVE); COLOR,URINE YELLOW; GLUCOSE, URINE NEGATIVE (NEGATIVE); KETONES,URINE NEGATIVE (NEGATIVE); LEUKOCYTE ESTERASE,URINE NEGATIVE (NEGATIVE); NITRITE,URINE NEGATIVE (NEGATIVE); PROTEIN,URINE NEGATIVE (NEGATIVE); UROBILINOGEN,URINE NEGATIVE mg/dL (<2.0)
[2019-08-25] MEDS ORDERED: ONDANSETRON 4 MG TAB.RAPDIS PO ONE (09:17)
--- NOTE | 2019-08-25 09:20 | ER Document Report ---
ED General - General Chief Complaint: Weakness Stated Complaint: WEAKNESS Time Seen by Provider: 08/25/19 09:10 TRAVEL OUTSIDE OF THE [place] IN LAST 30 DAYS: No - HPI Notes: Patient is a 49-year-old female with no significant past medical history who presents complaining of feeling weak yesterday with nausea and vomiting with continued nausea and today without any vomiting since yesterday. Patient states that she has been requested to get a work note. Patient also states that for about a year she has had dyspnea on exertion, but not at rest. She is able to eat and drink without difficulty. She is urinating normally and having normal bowel movements. Denies any prolonged immobilization, distance travel, recent surgery/trauma, personal cancer history, hormone use, or previous DVT/PE. Denies any headache, fever, neck pain, URI, sore throat, chest pain, palpitations, syncope, cough, wheeze, abdominal pain, diarrhea, urinary retention, dysuria, hematuria, loss of control of bowel or bladder, numbness/tingling, saddle anesthesia, muscle paralysis/weakness, or rash. - Related Data Allergies/Adverse Reactions: codeine [Codeine] Allergy (Verified 08/25/19 08:29) Past Medical History - Social History Smoking Status: Former Smoker Chew tobacco use (# tins/day): No Frequency of alcohol use: ex alcoholic sober for 6 yrs Family History: Arthritis, CAD, CVA, DM, Hyperlipidemia, Hypertension, Malignancy Patient has suicidal ideation: No Patient has homicidal ideation: No Pulmonary Medical History: Reports: Hx Asthma, Hx Bronchitis Renal/ Medical History: Reports: Hx Ovarian Cysts. Denies: Hx Peritoneal Dialysis Musculoskeletal Medical History: Reports Hx Arthritis - low back, Reports Hx Musculoskeletal Deformity, Reports Hx Musculoskeletal Trauma Traumatic Medical History: Reports: Hx Fractures - Hand Past Surgical History: Reports: Hx Appendectomy, Hx Gynecologic Surgery - Fallopian tubes cleaned out and noted to become , Hx Orthopedic Surgery - Right shoulder - Immunizations Hx Diphtheria, Pertussis, Tetanus Vaccination: Yes Review of Systems - Review of Systems -: Yes All other systems reviewed and negative Physical Exam - Vital signs Vitals: Temp Pulse Resp BP Pulse Ox 98 F 88 16 121/67 100 08/25/19 08:24 08/25/19 08:24 08/25/19 08:24 08/25/19 08:08/25/19 08:24 - Notes Notes: PHYSICAL EXAMINATION: GENERAL: Well-appearing, well-nourished and in no acute distress. A&Ox4. Answers questions appropriately. HEAD: Atraumatic, normocephalic. EYES: Pupils equal round and reactive to light, extraocular movements intact, sclera anicteric, conjunctiva are normal. ENT: Nares patent and without discharge. oropharynx clear without exudates. No tonsilar hypertrophy or erythema. Moist mucous membranes. NECK: Normal range of motion, supple without lymphadenopathy LUNGS: Breath sounds clear to auscultation bilaterally and equal. No wheezes rales or rhonchi. HEART: Regular rate and rhythm without murmurs, rubs, gallops. ABDOMEN: Soft, nontender, nondistended abdomen. No guarding, no rebound. Normal bowel sounds present. No CVA tenderness bilaterally. Sher negative. Musculoskeletal: FROM to passive/active. Strength 5+/5. Aubrie neg. No asymmetry to LE's. Extremities: No cyanosis, clubbing, or edema b/l. Peripheral pulses 2+. Cap illary refill less than 3 seconds. NEUROLOGICAL: Normal speech, normal gait. Cranial nerves grossly intact. NIH 0. PSYCH: Normal mood, normal affect. SKIN: Warm, Dry, normal turgor, no rashes or lesions noted. Course - Re-evaluation Re-evalutation: 08/25/19 10:52 Patient is an afebrile, well-hydrated 49-year-old female who presents to the ED with n/v suspect viral and chronic BARRY, unspecified. Vitals are acceptable without any significant tachycardia, tachypnea, or hypoxia. PE is otherwise unremarkable. Patient's abdomen is soft and nontender. Patient is nontoxic- appearing and is tolerating p.o. without any difficulties. Pt is currently asymptomatic. CBC, CMP, Lipase, EKG/cardiac enzymes, chest x-ray are all unr emarkable for any acute pathology. Patient has a heart score of 2, Wells score of 0, and is PERC negative. Patient does not have any chest pain, dyspnea, or shortness of breath. Patient's presentation and symptomatology creates low suspicion for ACS, PE, pneumothorax, pericarditis, dissection, respiratory compromise, severe dehydration, sepsis, meningitis, or other systemic emergent condition at this time. Patient is aware that this condition can change from initial presentation and she needs to monitor symptoms closely and seek medical attention for any acute changes. Pt is feeling better and would like to go home. She has not had any emesis throughout her stay. No worsening symptoms. Recommend conservative measures for symptoms. Recheck with your PCM in 2-3 days. Consider consult with Cardiology. Return to the ED with any worsening/concerning symptoms otherwise as reviewed in discharge. Patient is in agreement. - Vital Signs Vital signs: Temp Pulse Resp BP Pulse Ox 98 F 88 16 121/67 100 08/25/19 08:24 08/25/19 08:24 08/25/19 08:24 08/25/19 08:24 08/25/19 08:24 - Laboratory Result Diagrams: 08/25/19 08:48 08/25/19 08:48 Discharge - Discharge Clinical Impression: Dyspnea on exertion Nausea & vomiting Qualifiers: Vomiting type: unspecified Vomiting Intractability: non-intractable Qualified Code(s): R11.2 - Nausea with vomiting, unspecified Condition: Stable Disposition: HOME, SELF-CARE Additional Instructions: Maintain adequate fluid and food intake Leslie diet (B.R.A.T.) Bananas, rice, apples, toast, etc Zofran as needed tylenol if needed Monitor for any worsening symptoms Make sure you are staying hydrated enough to urinate and have normal BM's Recheck with your PCM in 2-3 days Schedule appointment with cardiology for further evaluation Consider consult with Gastroenterology for ongoing/worsening symptoms Return to the ED with any worsening symptoms and/or development of fever, headache, chest pain, palpitations, syncope, shortness of breath, trouble breathing, abdominal pain, n/v/d, blood in stool/urine, weakness, or other worsening symptoms that are concerning to you. Prescriptions: Ondansetron [Zofran Odt 4 mg Tablet] 1 - 2 tab PO Q4H PRN #15 tab.rapdis PRN Reason: For Nausea/Vomiting Referrals: MIKI MARIN MD [ACTIVE STAFF] - Follow up as needed MEME DUPONT MD [ACTIVE STAFF] - Follow up as needed
[2019-08-25] MEDS: NORMAL SALINE 1000 ML 1,000 ML IV PRN ×2 (09:35→09:36)
[2019-08-25 09:36] LABS: ALBUMIN 4.1 g/dL (3.5-5.0); ALKALINE PHOSPHATASE 80 U/L (38-126); ANION GAP 9 (5-19); ASPARTATE AMINO TRANSFERASE 18 U/L (14-36); BILIRUBIN,DIRECT 0.1 mg/dL (0.0-0.4); BILIRUBIN,TOTAL 0.4 mg/dL (0.2-1.3); BLOOD UREA NITROGEN 10 mg/dL (7-20); CALCIUM 9.7 mg/dL (8.4-10.2); CARBON DIOXIDE 27 mmol/L (22-30); CHLORIDE 102 mmol/L (98-107); GLUCOSE 94 mg/dL (75-110); POTASSIUM 4.3 mmol/L (3.6-5.0); TOTAL PROTEIN 7.3 g/dL (6.3-8.2)
--- NOTE | 2019-08-25 09:59 | RADIOLOGY REPORT (SQ) ---
EXAM DESCRIPTION: CHEST SINGLE VIEW COMPLETED DATE/TIME: 08/25/2019 9:38 am REASON FOR STUDY: BARRY COMPARISON: PA and lateral views of the chest from 12/31/2018. EXAM PARAMETERS: NUMBER OF VIEWS: One view. TECHNIQUE: Single frontal radiographic view of the chest acquired. RADIATION DOSE: NA LIMITATIONS: None. FINDINGS: LUNGS AND PLEURA: No consolidation, pleural effusion or pneumothorax. MEDIASTINUM AND HILAR STRUCTURES: No mediastinal or hilar contour abnormality. HEART AND VASCULAR STRUCTURES: No cardiomegaly. The pulmonary vasculature is within normal limits. BONES: No acute findings. HARDWARE: None in the chest. OTHER: No other finding. IMPRESSION: No acute cardiopulmonary process. TECHNICAL DOCUMENTATION: JOB ID: [id number] [employer]- All Rights Reserved Reading location - IP/workstation name: [email or web address]
[2019-08-25 10:00] LABS: NT PRO BNP 56 pg/mL (<125)
[2019-08-25 10:03] LABS: TROPONIN I < 0.012 ng/mL
[2019-08-25] MEDS ORDERED: ACETAMINOPHEN 325 MG TABLET ONE (10:24)
[2019-08-25 11:27] VITALS: BP 125/69
--- NOTE | 2019-08-26 11:41 | EKG REPORT ---
SEVERITY:- NORMAL ECG - SINUS RHYTHM : Confirmed by: Virgil Marcum 26-Aug-2019 11:40:27
== END 2019-08-25 11:26 | disposition home or self-care (01) ==
LOC: ER 08:22
DX: R11.2 Nausea with vomiting, unspecified (principal); R53.1 Weakness; J45.909 Unspecified asthma, uncomplicated; R06.09 Other forms of dyspnea; Z88.5 Allergy status to narcotic agent; Z87.891 Personal history of nicotine dependence
CPT/HCPCS: 93005; 99285; 96360; 36415; 83690; 85025; 80053; 81001; 84484; 83880; 71045; 93010; S0119; J7030

== ENCOUNTER 2019-09-21 15:00 | Emergency (ER) | payer BC ==
--- NOTE | 2019-09-21 15:16 | ER Document Report ---
ED Medical Screen (RME) - General Chief Complaint: Cough Stated Complaint: COUGH Time Seen by Provider: 09/21/19 15:13 Mode of Arrival: Ambulatory Information source: Patient Notes: 49-year-old female presents to ED for complaint of nasal congestion cough congestion. She states she did have a temperature of 99. She states the cough is been for a week and a half. She states she came in because the cough continued. She is alert oriented respirations regular and unlabored speaking in full sentences. She states she does have asthma. She states she does not have any inhalers that she uses she states she does not have a primary care doctor. I have greeted and performed a rapid initial assessment of this patient. A comprehensive ED assessment and evaluation of the patient, analysis of test results and completion of medical decision making process will be conducted by an additional ED providers. TRAVEL OUTSIDE OF THE [place] IN LAST 30 DAYS: No - Related Data Allergies/Adverse Reactions: codeine [Codeine] Allergy (Verified 08/25/19 08:29) Past Medical History Pulmonary Medical History: Reports: Hx Asthma, Hx Bronchitis Renal/ Medical History: Reports: Hx Ovarian Cysts. Denies: Hx Peritoneal Dialysis Musculoskeltal Medical History: Reports Hx Arthritis - low back, Reports Hx Musculoskeletal Deformity, Reports Hx Musculoskeletal Trauma Traumatic Medical History: Reports: Hx Fractures - Hand Past Surgical History: Reports: Hx Appendectomy, Hx Gynecologic Surgery - Fallopian tubes cleaned out and noted to become , Hx Orthopedic Surgery - Right shoulder - Immunizations Hx Diphtheria, Pertussis, Tetanus Vaccination: Yes
--- NOTE | 2019-09-21 16:09 | RADIOLOGY REPORT (SQ) ---
EXAM DESCRIPTION: CHEST 2 VIEWS COMPLETED DATE/TIME: 09/21/2019 3:52 pm REASON FOR STUDY: cough congestion COMPARISON: 08/25/2019 EXAM PARAMETERS: NUMBER OF VIEWS: two views TECHNIQUE: Digital Frontal and Lateral radiographic views of the chest acquired. RADIATION DOSE: NA LIMITATIONS: none FINDINGS: LUNGS AND PLEURA: No opacities, masses or pneumothorax. No pleural effusion. MEDIASTINUM AND HILAR STRUCTURES: No masses or contour abnormalities. HEART AND VASCULAR STRUCTURES: Heart normal size. No evidence for failure. BONES: No acute findings. HARDWARE: None in the chest. OTHER: No other significant finding. IMPRESSION: NO ACUTE RADIOGRAPHIC FINDING IN THE CHEST. TECHNICAL DOCUMENTATION: JOB ID: [id number] [email or web address]- All Rights Reserved Reading location - IP/workstation name: [email or web address]
[2019-09-21] MEDS ORDERED: BENZONATATE 100 MG CAPSULE PO ONE (16:34)
[2019-09-21] MEDS ORDERED: ALBUTEROL SULFATE HFA (90 MCG/PUFF) 8 GM MDI (1 MDI/ER DISP) IH PRN (16:35)
--- NOTE | 2019-09-21 16:38 | ER Document Report ---
HPI - HPI Time Seen by Provider: 09/21/19 15:13 Pain Level: Denies Context: Patient is a 49-year-old female who presents to the emergency department with chief complaint of cough. She has had a cough for the past week and a half. She had a low-grade temperature of 99 F here in the emergency department. 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 Patient has a history of asthma. She states that she is currently out of her albuterol inhaler. - CONSTITUTIONAL Constitutional: DENIES: Fever, Chills - EENT EENT: REPORTS: Nasal Drainage-Clear, Congestion. DENIES: Sore Throat, Ear Pain, Nasal Drainage-Purulent, Eye problems - NEURO Neurology: DENIES: Headache, Weakness, Vision blurred, Dizzinesss / Vertigo - CARDIOVASCULAR Cardiovascular: REPORTS: Chest pain - RESPIRATORY Respiratory: REPORTS: Trouble Breathing, Coughing - REPRODUCTIVE Reproductive: DENIES: : - MUSCULOSKELETAL Musculoskeletal: DENIES: Extremity pain - DERM Skin Color: Normal Skin Problems: None Past Medical History - General Information source: Patient - Social History Smoking Status: Former Smoker Family History: Arthritis, CAD, CVA, DM, Hyperlipidemia, Hypertension, Malignancy Patient has suicidal ideation: No Patient has homicidal ideation: No Pulmonary Medical History: Reports: Hx Asthma, Hx Bronchitis Renal/ Medical History: Reports: Hx Ovarian Cysts. Denies: Hx Peritoneal Dialysis Musculoskeletal Medical History: Reports Hx Arthritis - low back, Reports Hx Musculoskeletal Deformity, Reports Hx Musculoskeletal Trauma Traumatic Medical History: Reports: Hx Fractures - Hand Past Surgical History: Reports: Hx Appendectomy, Hx Gynecologic Surgery - Fallopian tubes cleaned out and noted to become , Hx Orthopedic Surgery - Right shoulder - Immunizations Hx Diphtheria, Pertussis, Tetanus Vaccination: Yes Vertical Provider Document - CONSTITUTIONAL Agree With Documented VS: Yes Exam Limitations: No Limitations General Appearance: No Apparent Distress - INFECTION CONTROL TRAVEL OUTSIDE OF THE [place] IN LAST 30 DAYS: No - HEENT HEENT: Atraumatic, Normocephalic, PERRLA. negative: Pharyngeal Exudate, Pharyngeal Tenderness, Pharyngeal Erythema, Tympanic Membrane Red, Tympanic Membrane Bulging - NECK Neck: Normal Inspection - RESPIRATORY Respiratory: Breath Sounds Normal, No Respiratory Distress - CARDIOVASCULAR Cardiovascular: Regular Rate, Regular Rhythm Pulses: Normal: Radial - MUSCULOSKELETAL/EXTREMETIES Musculoskeletal/Extremeties: FROM - NEURO Level of Consciousness: Awake, Alert, Appropriate Motor/Sensory: No Motor Deficit, No Sensory Deficit - DERM Integumentary: Warm, Dry, No Rash Course - Re-evaluation Re-evalutation: 09/21/19 Patient's chest x-ray is negative for any acute findings. No pneumonia noted. Patient will be started on prednisone for 5 days. She will also follow-up with a primary care provider. She will be given Tessalon Perles, cetirizine, and Flonase to help with her symptoms. Patient does have edema and erythema to nasal mucosa, therefore I suspect this will help with her symptoms. She will be sent home with an albuterol inhaler, as she is out. I have a very low suspicion for any life-threatening etiology at this time. Vital signs are stable. P atient appears well. Follow-up precautions were given. Verbal discharge instructions were given to the patient. They verbalized understanding. They are stable for discharge. - Vital Signs Vital signs: Temp Pulse Resp BP Pulse Ox 97.9 F 82 14 125/66 100 09/21/19 15:15 09/21/19 15:15 09/21/19 15:15 09/21/19 15:15 09/21/19 15:15 Discharge - Discharge Clinical Impression: Cough, Nasal congestion Condition: Stable Disposition: HOME, SELF-CARE Additional Instructions: You were seen today in the emergency department for a cough. Your chest x-ray was normal. You are being sent home with cough medicine. Take the medicine as needed. You are also being sent home with an albuterol inhaler. You can take 1-2 puffs every 4-6 hours as needed. You are also being sent home with stero ids. Make sure you finish your whole course. Follow-up with the primary care provider in regards to this visit. Prescriptions: Benzonatate [Tessalon Perle 100 mg Capsule] 100 mg PO Q8HP PRN #40 cap PRN Reason: Prednisone [Deltasone 20 mg Tablet] 3 tab PO DAILY 5 Days #15 tablet Forms: Return to Work Referrals: STONE AMARAL FNP [NURSE PRACTITIONER] - Follow up in 3-5 days
[2019-09-21 16:47] VITALS: BP 125/75
== END 2019-09-21 16:48 | disposition home or self-care (01) ==
LOC: ER 15:00
DX: R05 Cough (principal); R09.81 Nasal congestion; J45.909 Unspecified asthma, uncomplicated; R09.89 Other specified symptoms and signs involving the circulatory and respiratory systems; R07.9 Chest pain, unspecified; Z87.891 Personal history of nicotine dependence
CPT/HCPCS: 99283; 71046; J3490

== ENCOUNTER 2019-12-15 09:54 | Emergency (ER) | payer BC ==
--- NOTE | 2019-12-15 10:56 | ER Document Report ---
HPI - HPI Time Seen by Provider: 12/15/19 10:39 Pain Level: 3 Notes: Patient is a 49-year-old female with a history of asthma who presents complaining of right shoulder pain/trapezius muscle pain over the past couple days without precipitating event or injury. Patient states that she does do a lot with her arms that is repeated motion, and has had a surgery to her shoulder years ago. She has not noticed any swelling or bruising. Movements make the pain worse. Pain does not radiate otherwise. She is able to eat and drink without difficulty. Denies any headache, fever, neck pain, URI, sore throat, chest pain, palpitations, syncope, cough, shortness of breath, wheeze, dyspnea, abdominal pain, nausea/vomiting/diarrhea, urinary retention, dysuria, hematuria, loss of control of bowel or bladder, numbness/tingling, saddle anesthesia, muscle paralysis/weakness, or rash. - ROS Systems Reviewed and Negative: Yes All other systems reviewed and negative - CONSTITUTIONAL Constitutional: DENIES: Fever, Chills - REPRODUCTIVE Reproductive: DENIES: : - MUSCULOSKELETAL Musculoskeletal: REPORTS: Extremity pain - right shoulder Past Medical History - Social History Smoking Status: Former Smoker Frequency of alcohol use: None Drug Abuse: None Family History: Arthritis, CAD, CVA, DM, Hyperlipidemia, Hypertension, Malignancy Patient has suicidal ideation: No Patient has homicidal ideation: No Pulmonary Medical History: Reports: Hx Asthma, Hx Bronchitis Renal/ Medical History: Reports: Hx Ovarian Cysts. Denies: Hx Peritoneal Dialysis Musculoskeletal Medical History: Reports Hx Arthritis - low back, Reports Hx Musculoskeletal Deformity, Reports Hx Musculoskeletal Trauma Traumatic Medical History: Reports: Hx Fractures - Hand Past Surgical History: Reports: Hx Appendectomy, Hx Gynecologic Surgery - Fallopian tubes cleaned out and noted to become , Hx Orthopedic Surgery - Right shoulder - Immunizations Hx Diphtheria, Pertussis, Tetanus Vaccination: Yes Vertical Provider Document - CONSTITUTIONAL Agree With Documented VS: Yes Notes: PHYSICAL EXAMINATION: GENERAL: Well-appearing, well-nourished and in no acute distress. NECK: Normal range of motion, supple without lymphadenopathy. Non-tender. Spurling negative. No rigidity/meningismus. LUNGS: Breath sounds clear to auscultation bilaterally and equal. No wheezes rales or rhonchi. HEART: Regular rate and rhythm without murmurs, rubs, gallops. Musculoskeletal: Lt shoulder: FROM to passive. LROM to active due to pain. Strength 5+/5. Neg speed test. No crepitus. No erythema or warmth. No deformity or ecchymosis. RC intact 5+/5 strength. There is reproducible tenderness to palpation of the right trapezius muscle with mild trigger point/spasm noted. Extremities: No cyanosis, clubbing, or edema b/l. Peripheral pulses 2+. Capillary refill less than 3 seconds. NEUROLOGICAL: Normal speech, normal gait. Normal sensory, motor exams PSYCH: Normal mood, normal affect. SKIN: Warm, Dry, normal turgor, no rashes or lesions noted. - INFECTION CONTROL TRAVEL OUTSIDE OF THE [place] IN LAST 30 DAYS: No Course - Re-evaluation Re-evalutation: 12/15/19 10:54 Patient is an afebrile, well-hydrated, 49-year-old female who presents to the ED with Rt shoulder/trapezius muscle pain which I suspect to be benign. Vitals are acceptable without any significant tachycardia, tachypnea, or hypoxia. PE is otherwise unremarkable for any neurovascular compromise, obvious tendon/ligament rupture, obvious fracture/dislocation, septic joint. Patient is nontoxic-ap pearing. No other labs or imaging warranted at this time based on H&P. Conservative measures otherwise for symptoms. Recheck with your PCM in 3-5 days. Consider consult orthopedics. Return to the ED with any worsening/concerning symptoms otherwise as reviewed in discharge. Patient is in agreement. - Vital Signs Vital signs: Temp Pulse Resp BP Pulse Ox 97.9 F 72 20 101/62 99 12/15/19 09:58 12/15/19 09:58 12/15/19 09:58 12/15/19 09:58 12/15/19 09:58 Discharge - Discharge Clinical Impression: Trapezius muscle spasm Right shoulder pain Qualifiers: Chronicity: acute Qualified Code(s): M25.511 - Pain in right shoulder Condition: Stable Disposition: HOME, SELF-CARE Additional Instructions: Rest, Ice, Compression, Elevation Tylenol/ibuprofen as needed Light stretches daily Strength exercises as able Moist heat and massage may help F/u with your PCP in 3-5 days for a recheck Consider consult(s) with Orthopedics/physical therapy for ongoing/worsening symptoms Return to the ED with any worsening symptoms and/or development of fever, headache, chest pain, palpitations, syncope, shortness of breath, trouble breathing, abdominal pain, n/v/d, muscle weakness/paralysis, numbness/tingling, swelling, redness, or other worsening symptoms that are concerning to you. Prescriptions: Ibuprofen [Motrin 800 mg Tablet] 800 mg PO Q8H PRN #15 tab PRN Reason: Methocarbamol [Robaxin 750 mg Tablet] 750 mg PO TID PRN #10 tablet PRN Reason: Forms: Return to Work Referrals: [facility] ([facility]) [Provider Group] - Follow up as needed
[2019-12-15 11:05] VITALS: BP 112/60
== END 2019-12-15 11:03 | disposition home or self-care (01) ==
LOC: ER 09:54
DX: M25.511 Pain in right shoulder (principal); M62.830 Muscle spasm of back; J45.909 Unspecified asthma, uncomplicated; Z87.891 Personal history of nicotine dependence
CPT/HCPCS: 99283

== ENCOUNTER 2019-12-31 06:23 | Emergency (ER) | payer BC ==
[2019-12-31 07:07] LABS: A TYPE INFLUENZA AG NEGATIVE (NEGATIVE); B INFLUENZA AG NEGATIVE (NEGATIVE)
[2019-12-31] MEDS ORDERED: IBUPROFEN 800 MG TABLET PO ONE (08:18)
--- NOTE | 2019-12-31 09:02 | ER Document Report ---
HPI - HPI Patient complains to provider of: sinus headache Time Seen by Provider: 12/31/19 07:54 Onset: Other - Saturday- 4 days Pain Level: 2 Context: This 49-year-old female with history of asthma bronchitis and arthritis presents today with complaints of a frontal sinus headache since Saturday. She complains of nausea denies fever vomiting diarrhea. Reports she has taken multiple [id number] medications to include Tylenol and nasal Flonase spray and some cough medicine without relief of symptoms. She has not taken anything today. Denies cough. Denies abdominal pain. Denies pain with void. Associated Symptoms: Headache Exacerbated by: Denies Relieved by: Denies Similar symptoms previously: No Recently seen / treated by doctor: No - REPRODUCTIVE Reproductive: DENIES: : Past Medical History - General Information source: Patient - Social History Smoking Status: Former Smoker Cigarette use (# per day): No Frequency of alcohol use: None Drug Abuse: None Occupation: [employer] Family History: Arthritis, CAD, CVA, DM, Hyperlipidemia, Hypertension, Malignancy Patient has suicidal ideation: No Patient has homicidal ideation: No Pulmonary Medical History: Reports: Hx Asthma, Hx Bronchitis Renal/ Medical History: Reports: Hx Ovarian Cysts. Denies: Hx Peritoneal Dialysis Musculoskeletal Medical History: Reports Hx Arthritis - low back, Reports Hx Musculoskeletal Deformity, Reports Hx Musculoskeletal Trauma Traumatic Medical History: Reports: Hx Fractures - Hand Past Surgical History: Reports: Hx Appendectomy, Hx Gynecologic Surgery - Fallopian tubes cleaned out and noted to become , Hx Orthopedic Surgery - Right shoulder - Immunizations Hx Diphtheria, Pertussis, Tetanus Vaccination: Yes Vertical Provider Document - CONSTITUTIONAL Agree With Documented VS: Yes Exam Limitations: No Limitations General Appearance: WD/WN, No Apparent Distress - INFECTION CONTROL TRAVEL OUTSIDE OF THE [place] IN LAST 30 DAYS: No - HEENT HEENT: Atraumatic, Normal ENT Exam, Normocephalic, PERRLA. negative: Conjuctival Injection, Pharyngeal Erythema, Tympanic Membrane Red Notes: Complains of frontal and maxillary sinus pressure - NECK Neck: Normal Inspection, Supple. negative: Lymphadenopathy-Left, Lymphadenopathy-Right - RESPIRATORY Respiratory: Breath Sounds Normal, No Respiratory Distress - CARDIOVASCULAR Cardiovascular: Regular Rate, Regular Rhythm - GI/ABDOMEN Gastrointestinal: Abdomen Soft, Abdomen Non-Tender - BACK Back: Normal Inspection. negative: CVA Tenderness-Right, CVA Tenderness-Left - MUSCULOSKELETAL/EXTREMETIES Musculoskeletal/Extremeties: GEOFF, FROM, Non-Tender - NEURO Level of Consciousness: Awake, Alert, Appropriate Motor/Sensory: No Motor Deficit - DERM Integumentary: Warm, Dry Course - Re-evaluation Re-evalutation: 12/31/19 19:04 Laboratory 12/31/19 06:40 Influenza A (Rapid) NEGATIVE Influenza B (Rapid) NEGATIVE Patient received Motrin. Flu test negative. Drinking p.o. fluids. She reports she feels much better. She was instructed on ibuprofen and Zyrtec. She was also instructed to continue the Flonase and follow-up with primary care provider for continued symptoms. She verbalized understanding to all instructions. - Vital Signs Vital signs: Temp Pulse Resp BP Pulse Ox 98.1 F 96 15 104/60 99 12/31/19 06:33 12/31/19 06:33 12/31/19 06:33 12/31/19 06:33 12/31/19 06:33 Discharge - Discharge Clinical Impression: sinus pressure headache Condition: Stable Disposition: HOME, SELF-CARE Instructions: Headache ([facility]), Ibuprofen (General) ([facility]), Non-Sedating Presc ription Antihistamine ([facility]) Additional Instructions: *You have been evaluated for sinus headache *Increase fluid intake as discussed *Continue to utilize your Flonase *Take ibuprofen and Zyrtec as prescribed *Monitor your temperature *Follow up with a primary care provider within 1 week for recheck *Return to ED for worsening condition, changes, needs, concerns Prescriptions: Ibuprofen [Motrin 800 mg Tablet] 800 mg PO TID #15 tablet Cetirizine HCl [Zyrtec 10 mg Tablet] 10 mg PO DAILY #30 tablet Forms: Return to Work
[2019-12-31 09:24] VITALS: BP 114/61
== END 2019-12-31 09:22 | disposition home or self-care (01) ==
LOC: ER 06:23
DX: G44.89 Other headache syndrome (principal); R11.0 Nausea
CPT/HCPCS: 87804

== ENCOUNTER 2020-03-11 06:02 | Emergency (ER) | payer BC ==
[2020-03-11] MEDS ORDERED: NORMAL SALINE 1000 ML 1,000 ML IV ONE (08:10)
[2020-03-11] MEDS ORDERED: ONDANSETRON HCL INJ/PF 4 MG/2 ML SDV IV ONE (08:13)
[2020-03-11] MEDS ORDERED: KETOROLAC TROMETHAMINE INJ/PF 30 MG/1 ML SDV IV ONE (08:13)
[2020-03-11 09:17] LABS: ABSOLUTE EOSINOPHILS # (AUTO) 0.1 10^3/uL (0.0-0.6); ABSOLUTE LYMPHOCYTES (AUTO) 2.3 10^3/uL (0.5-4.7); ABSOLUTE MONOCYTES (AUTO) 0.4 10^3/uL (0.1-1.4); ABSOLUTE NEUT (AUTO) 3.7 10^3/uL (1.7-8.2); BASOPHILS % (AUTO) 0.7 % (0-2); EOSINOPHILS % (AUTO) 1.4 % (0-6); HEMATOCRIT 40.2 % (36.0-47.0); HEMOGLOBIN 13.8 g/dL (12.0-15.5); MEAN CORPUSCULAR HEMOGLOBIN 27.1 pg (27.0-33.4); MEAN CORPUSCULAR HGB CONC 34.2 g/dL (32.0-36.0); MEAN CORPUSCULAR VOLUME 79 fl (80-97); PLATELET COUNT 309 10^3/uL (150-450); RED BLOOD COUNT 5.08 10^6/uL (3.72-5.28); RED CELL DISTRIBUTION WIDTH 16.1 % (11.5-14.0); SEGMENTED NEUTROPHILS % (AUTO) 56.9 % (42-78); TOTAL CELLS COUNTED % (AUTO) 100 %; WHITE BLOOD COUNT 6.5 10^3/uL (4.0-10.5)
--- NOTE | 2020-03-11 09:24 | ER Document Report ---
Entered by ANNE MARIE HELTON SCRIBE 03/11/20 0755 Acting as scribe for:TRUPTI KING, ED General - General Chief Complaint: Dizziness Stated Complaint: STOMACH PAIN/NAUSEA Time Seen by Provider: 03/11/20 07:35 Primary Care Provider: ANIRUDH JONES MD [ACTIVE STAFF] - Follow up as needed Mode of Arrival: Ambulatory Information source: Patient Notes: This 49-year-old female patient presents to the emergency department today with complaints of a two-week history of abdominal pain with associated dizziness and nausea. Patient states it hurts across her entire lower abdomen. Patient states she gets some relief with Motrin. Patient denies any urinary symptoms, vomiting, constipation, diarrhea, or vaginal discharge. Patient states her last menstrual period was on February 21 but states she is normally irregular. TRAVEL OUTSIDE OF THE [place] IN LAST 30 DAYS: No - Related Data Allergies/Adverse Reactions: codeine [Codeine] Allergy (Verified 12/31/19 06:28) Past Medical History - General Information source: Patient - Social History Smoking Status: Never Smoker Cigarette use (# per day): No Chew tobacco use (# tins/day): No Frequency of alcohol use: None Drug Abuse: None Lives with: Family Family History: Arthritis, CAD, CVA, DM, Hyperlipidemia, Hypertension, Malignancy Patient has suicidal ideation: No Patient has homicidal ideation: No Pulmonary Medical History: Reports: Hx Asthma, Hx Bronchitis Renal/ Medical History: Reports: Hx Ovarian Cysts Musculoskeletal Medical History: Reports Hx Arthritis - low back, Reports Hx Musculoskeletal Deformity, Reports Hx Musculoskeletal Trauma Traumatic Medical History: Reports: Hx Fractures - Hand Past Surgical History: Reports: Hx Appendectomy, Hx Gynecologic Surgery - Fallop west tubes cleaned out and noted to become , Hx Orthopedic Surgery - Right shoulder - Immunizations Hx Diphtheria, Pertussis, Tetanus Vaccination: Yes Review of Systems - Review of Systems Constitutional: No symptoms reported EENT: No symptoms reported Cardiovascular: See HPI, Dizziness, Lightheaded Respiratory: No symptoms reported Gastrointestinal: See HPI, Abdominal pain, Nausea. denies: Diarrhea, Vomiting, Constipation Genitourinary: denies: Dysuria Female Genitourinary: denies: Vaginal discharge Musculoskeletal: No symptoms reported Skin: No symptoms reported Hematologic/Lymphatic: No symptoms reported Neurological/Psychological: No symptoms reported -: Yes All other systems reviewed and negative Physical Exam - Vital signs Vitals: Temp Pulse BP Pulse Ox 97.7 F 81 119/60 99 03/11/20 06:09 03/11/20 06:09 03/11/20 06:09 03/11/20 06:09 - Notes Notes: Physical Exam: General: Alert, appears well. HEENT: Normocephalic. Atraumatic. PERRL. Extraocular movements intact. Oropharynx clear. Neck: Supple. Non-tender. Respiratory: No respiratory distress. Clear and equal breath sounds bilaterally. Cardiovascular: Regular rate and rhythm. Abdominal: Suprapubic and right lower quadrant tenderness with palpation. No distension. Normal Bowel Sounds. Back: No gross abnormalities. Extremities: Moves all four extremities. Upper extremities: Normal inspection. Normal ROM. Lower extremities: Normal inspection. No edema. Normal ROM. Neurological: Normal cognition. AAOx4. Normal speech. Psychological: Normal affect. Normal Mood. Skin: Warm. Dry. Normal color. Course - Re-evaluation Re-evalutation: 03/11/20 11:58 MDM 49 year old with suprapubic pain and fibroids on CT. Pain controlled here. Discussed Hearing Aid Technician follow up and she expressed understanding. - Vital Signs Vital signs: Temp Pulse Resp BP Pulse Ox 98.3 F 78 18 113/64 98 03/11/20 12:09 03/11/20 12:09 03/11/20 12:09 03/11/20 12:09 03/11/20 12:09 - Laboratory Result Diagrams: 03/11/20 08:50 03/11/20 08:50 Laboratory results interpreted by me: 03/11/20 03/11/20 03/11/20 08:50 08:50 08:50 MCV 79 L RDW 16.1 H Sodium 135.4 L Urine Ascorbic Acid 40 H - Diagnostic Test Radiology reviewed: Reports reviewed Discharge - Discharge Clinical Impression: Fibroid uterus Qualifiers: Uterine leiomyoma location: unspecified location Qualified Code(s): D25.9 - Leiomyoma of uterus, unspecified Condition: Good Disposition: HOME, SELF-CARE Instructions: Antinausea Medication ([facility]), Dizziness ([facility]) Additional Instructions: Rest, take your medicines as directed. Monitor your blood pressure. Please return here for abdominal pain with fever, persistent vomiting or other concerns. Prescriptions: Naproxen [EC-Naprosyn] 500 mg PO BID #20 tablet.dr Forms: Return to Work Referrals: ANIRUDH JONES MD [ACTIVE STAFF] - Follow up as needed I personally performed the services described in the documentation, reviewed and edited the documentation which was dictated to the scribe in my presence, and it accurately records my words and actions.
[2020-03-11 09:29] LABS: ALBUMIN 4.1 g/dL (3.5-5.0); ALKALINE PHOSPHATASE 93 U/L (38-126); ANION GAP 5 (5-19); ASPARTATE AMINO TRANSFERASE 17 U/L (14-36); BILIRUBIN,TOTAL 0.3 mg/dL (0.2-1.3); BLOOD UREA NITROGEN 8 mg/dL (7-20); CALCIUM 9.2 mg/dL (8.4-10.2); CARBON DIOXIDE 26 mmol/L (22-30); CHLORIDE 104 mmol/L (98-107); GLUCOSE 105 mg/dL (75-110); POTASSIUM 4.3 mmol/L (3.6-5.0); TOTAL PROTEIN 7.4 g/dL (6.3-8.2)
--- NOTE | 2020-03-11 09:33 | RADIOLOGY REPORT (SQ) ---
EXAM DESCRIPTION: CT ABD/PELVIS WITH IV ONLY IMAGES COMPLETED DATE/TIME: 03/11/2020 9:20 am REASON FOR STUDY: abd pain COMPARISON: None. TECHNIQUE: CT scan of the abdomen and pelvis performed using helical scanning technique with dynamic intravenous contrast injection. No oral contrast. Images reviewed with lung, soft tissue, and bone windows. Reconstructed coronal and sagittal MPR images reviewed. Delayed images for evaluation of the urinary system also acquired. All images stored on PACS. All CT scanners at this facility use dose modulation, iterative reconstruction, and/or weight based d osing when appropriate to reduce radiation dose to as low as reasonably achievable (ALARA). [facility]: Dose Right [facility]: CareDose [facility]: Dose Right [facility]: Teradose 4D [facility]: [employer] CONTRAST TYPE AND DOSE: contrast/concentration: Isovue 350.00 mg/ml; Total Contrast Delivered: 78.0 ml; Total Saline Delivered: 67.0 ml RENAL FUNCTION: None required. The patient is less than 50 years old. RADIATION DOSE: CT Rad equipment meets quality standard of care and radiation dose reduction techniq ues were employed. CTDIvol: 5.4 - 7.5 mGy. DLP: 704 mGy-cm.. LIMITATIONS: None. FINDINGS: LOWER CHEST: No significant findings. No nodules or infiltrates. LIVER: Normal size. No masses. No dilated ducts. SPLEEN: Normal size. No focal lesions. PANCREAS: No masses. No significant calcifications. No adjacent inflammation or peripancreatic fluid collections. Pancreatic duct not dilated. GALLBLADDER: No identified stones by CT criteria. No inflammatory changes to suggest cholecystitis. ADRENAL GLANDS: No significant masses or asymmetry. RIGHT KIDNEY AND URETER: No solid masses. No significant calcifications. No hydronephrosis or hyd roureter. LEFT KIDNEY AND URETER: No solid masses. No significant calcifications. No hydronephrosis or hydr oureter. AORTA AND VESSELS: No aneurysm. No dissection. Renal arteries, SMA, celiac without stenosis. RETROPERITONEUM: No retroperitoneal adenopathy, hemorrhage or masses. BOWEL AND PERITONEAL CAVITY: No masses or inflammatory changes. No free fluid or peritoneal masses. APPENDIX: Surgically absent. PELVIS: Markedly enlarged uterus. Multiple heterogenous masses, the largest measuring 9 cm and 11 cm . No free fluid. Normal bladder. ABDOMINAL WALL: No masses. No hernias. BONES: No significant or acute findings. OTHER: No other significant finding. IMPRESSION: MULTIPLE LARGE UTERINE FIBROIDS. NO OTHER SIGNIFICANT OR ACUTE FINDING IN THE ABDOMEN O R PELVIS ON CT SCAN WITH IV CONTRAST. TECHNICAL DOCUMENTATION: JOB ID: [id number] Quality ID # [id number]: Final reports with documentation of one or more dose reduction techniques (e.g., Au tomated exposure control, adjustment of the mA and/or kV according to patient size, use of iterative reconstruction technique) 2010 [employer]- All Rights Reserved Reading location - IP/workstation name: CHE
[2020-03-11 09:44] LABS: APPEARANCE,URINE SLIGHTLY-CLOUDY; BILIRUBIN,URINE NEGATIVE (NEGATIVE); COLOR,URINE YELLOW; GLUCOSE, URINE NEGATIVE (NEGATIVE); KETONES,URINE NEGATIVE (NEGATIVE); LEUKOCYTE ESTERASE,URINE NEGATIVE (NEGATIVE); NITRITE,URINE NEGATIVE (NEGATIVE); PROTEIN,URINE NEGATIVE (NEGATIVE); URINE SPECIFIC GRAVITY 1.018; UROBILINOGEN,URINE NEGATIVE mg/dL (<2.0)
[2020-03-11 12:11] VITALS: BP 113/64
== END 2020-03-11 12:14 | disposition home or self-care (01) ==
LOC: ER 06:02
DX: D25.9 Leiomyoma of uterus, unspecified (principal); R42 Dizziness and giddiness; R11.0 Nausea; R10.9 Unspecified abdominal pain; Z88.6 Allergy status to analgesic agent
CPT/HCPCS: 99284; 96361; 96374; 96375; 36415; 83605; 83690; 85025; 81025; 80053; 81001; 84484; 74177; J1885; J2405; J7030

== ENCOUNTER 2020-04-28 05:29 | Inpatient (IN) | payer BC ==
[2020-04-20 09:49] LABS: APPEARANCE,URINE TURBID; BILIRUBIN,URINE NEGATIVE (NEGATIVE); COLOR,URINE YELLOW; GLUCOSE, URINE NEGATIVE (NEGATIVE); KETONES,URINE NEGATIVE (NEGATIVE); LEUKOCYTE ESTERASE,URINE NEGATIVE (NEGATIVE); NITRITE,URINE NEGATIVE (NEGATIVE); PROTEIN,URINE NEGATIVE (NEGATIVE); URINE SPECIFIC GRAVITY 1.019
[2020-04-20 10:50] LABS: HEMATOCRIT 40.7 % (36.0-47.0); HEMOGLOBIN 13.6 g/dL (12.0-15.5); MEAN CORPUSCULAR HEMOGLOBIN 27.2 pg (27.0-33.4); MEAN CORPUSCULAR HGB CONC 33.5 g/dL (32.0-36.0); MEAN CORPUSCULAR VOLUME 81 fl (80-97); PLATELET COUNT 330 10^3/uL (150-450); RED BLOOD COUNT 5.02 10^6/uL (3.72-5.28); RED CELL DISTRIBUTION WIDTH 15.5 % (11.5-14.0); WHITE BLOOD COUNT 7.4 10^3/uL (4.0-10.5)
[2020-04-20 11:17] LABS: ALBUMIN 4.1 g/dL (3.5-5.0); ALKALINE PHOSPHATASE 85 U/L (38-126); ANION GAP 9 (5-19); ASPARTATE AMINO TRANSFERASE 18 U/L (14-36); BILIRUBIN,TOTAL 0.3 mg/dL (0.2-1.3); BLOOD UREA NITROGEN 11 mg/dL (7-20); CALCIUM 8.7 mg/dL (8.4-10.2); CARBON DIOXIDE 26 mmol/L (22-30); CHLORIDE 103 mmol/L (98-107); GLUCOSE 113 mg/dL (75-110); POTASSIUM 3.6 mmol/L (3.6-5.0)
[~2020-04-28 05:29] MED LIST: CEFAZOLIN INJ 1 GM VIAL ONE; CEFAZOLIN SODIUM 2 GM in DEXTROSE 5%-WATER 100 ML IV PRN; LACTATED RINGERS 1000 ML IV PRN; LIDOCAINE 0.5% INJ-PF (5 MG/ML) 50 ML SDV SUBCUT PRN
--- NOTE | 2020-04-28 06:13 | RADIOLOGY REPORT (SQ) ---
EXAM DESCRIPTION: [facility]: XR CHEST 1 VIEW CLINICAL HISTORY: 50 years Female; preop; COMPARISON: 08/25/2019 FINDINGS: Lungs: Lungs are clear, with no focal infiltrate, pneumothorax, or pleural effusion. Mediastinum: Mediastinum is within normal limits for this positioning. Bones: Bony structures are unremarkable. IMPRESSION: 1. No acute pulmonary findings.
[2020-04-28] MEDS ORDERED: MIDAZOLAM 2 MG/2 ML INJ ONE (07:10)
[2020-04-28] MEDS ORDERED: HYDROMORPHONE HCL INJ/PF 2 MG/ML AMPULE ONE (07:10)
[2020-04-28] MEDS ORDERED: PROPOFOL INJ 200 MG/20 ML VIAL IV ONE (07:10)
--- NOTE | 2020-04-28 07:19 | EKG REPORT ---
SEVERITY:- BORDERLINE ECG - SINUS RHYTHM BORDERLINE T ABNORMALITIES, ANT-LAT LEADS : Confirmed by: Fritz Terry MD 28-Apr-2020 07:18:55
[2020-04-28] MEDS ORDERED: ACETAMINOPHEN 1,000 MG/100 ML RTUPB IV ONE (07:59)
[2020-04-28] MEDS ORDERED: VASOPRESSIN INJ 20 UNIT/1 ML VIAL ONE (08:17)
[2020-04-28] MEDS ORDERED: FENTANYL CITRATE INJ/PF 100 MCG/2 ML AMPUL ONE (08:27)
[2020-04-28] MEDS ORDERED: DIPHENHYDRAMINE HCL 50 MG/ML VIAL IV PRN (09:12)
[2020-04-28] MEDS ORDERED: PROMETHAZINE HCL INJ 25 MG/1 ML VIAL IV PRN ×3 (09:12→09:27)
[2020-04-28] MEDS ORDERED: FENTANYL CITRATE INJ/PF 100 MCG/2 ML AMPUL IV PRN ×3 (09:12)
[2020-04-28] MEDS ORDERED: MEPERIDINE HCL/PF INJ 25 MG/1 ML DISP.SYRIN IV PRN (09:12)
[2020-04-28] MEDS ORDERED: ONDANSETRON HCL INJ/PF 4 MG/2 ML SDV IV PRN (09:12)
[2020-04-28] MEDS ORDERED: DIPH/PERTUSS(ACELL)/TETANUS VAC/PF 0.5 ML SYR (>=10YO) IM PRN (09:27)
[2020-04-28] MEDS ORDERED: ACETAMINOPHEN 325 MG TABLET PO PRN (09:27)
[2020-04-28] MEDS ORDERED: MORPHINE SULFATE 10 MG/ML INJ IV PRN (09:27)
[2020-04-28] MEDS ORDERED: OXYCODONE-ACETAMINOPHEN 5-325 MG TABLET PO PRN (09:27)
[2020-04-28] MEDS ORDERED: ACETAMINOPHEN 1,000 MG/100 ML RTUPB IV PRN (09:27)
[2020-04-28] MEDS ORDERED: MEASLES,MUMPS&RUBELLA VACC/PF 0.5 ML VIAL SUBCUT PRN (09:27)
[2020-04-28] MEDS ORDERED: RINGERS SOLUTION,LACTATED 1,000 ML IV PRN (09:27)
--- NOTE | 2020-04-28 09:43 | Operative Report ---
Operative Report DATE OF SURGERY: 04/28/20 PREOPERATIVE DIAGNOSIS: Leiomyomas, utero megaly, pelvic pain POSTOPERATIVE DIAGNOSIS: Same OPERATION: Total abdominal hysterectomy with bilateral salpingectomy and left oophorectomy SURGEON: FRANKI RUIZ 1ST SENIOR GEOTECHNICAL ENGINEER: KARON BEAR ANESTHESIA: GA TISSUE REMOVED OR ALTERED: Uterus cervix leiomyomas bilateral fallopian tubes left ovary COMPLICATIONS: None ESTIMATED BLOOD LOSS: 250 cc INTRAOPERATIVE FINDINGS: Large fibroid uterus up to the umbilicus, right ovary normal in appearance with a normal-appearing follicular cyst, left ovary atrophic and perimenopausal appearing adhered high on the uterine fundus nearest the largest fibroid. Fibroids were extensive and the largest one appeared to be approximately 11 cm. PROCEDURE: Patient was taken to the operating room prepared and draped in a normal sterile fashion in a supine position. A Pfannenstiel skin incision was made scalpel and carried through to the underlying layer of fascia the fascia was divided in the midline and extended laterally with Lopez's. Fascia was then dissected sharply from the rectus muscle with John's and using LigaSure when necessary for control of furniture associate vessels. This muscle was then divided and the peritoneal cavity was entered bluntly the surgeon finger fracture. The bladder blade was inserted and the uterus was delivered through the incision. The above findings were noted. Both round ligaments were tied off using a 0 Vicryl pop-off and the round ligament was undermined using the Bovie. A decision was then made to review remove the anterior fibroid that visualization easier. This fibroid was injected with approximately 5 cc of vasopressin. And the uterine sound was scored with a scalpel. Underlying fibroid was then bluntly and sharply dissected out using surgeon finger fracture and the Bovie as necessary A 10 blade scalpel. The fibroid was able to be amputated this was done using Lopez's. Fibroid was then passed off the surgical field. At this point had better visualization. Bilateral fallopian tubes were both removed using the LigaSure following the mesosalpinx. The Emerson retractor was then placed in a normal fashion and the bowel was packed away. a decision was made at that point because of the location of the left ovary and its very menopausal appearance well as its location making it difficult to isolate and for conservation this ovary was decided to be sacrificed. The utero the ovarian ligament was then transected with the LigaSure. Following the contours of the uterus dissecting them at the tissue away to drop the ureter away. Tension was then turned to the right adnexa and the utero-ovarian ligament was ligated on this side using the LigaSure and using blunt dissection to drop the tissue away with the ureter containing the ureter continued with ligation of the uterine arteries down following the contours of the uterus on both sides reaching the internal cervical loss. Flap was created using Metzenbaums and blunt dissection bladder blade was reinserted. To hold the bladder away. Negation of the uterine artery was completed down to the level of the external cervical office was palpable through the tissues. 2 curved Shalini clamps were then placed just under the cervix. Vaginal angles were then tied off with 0 Vicryl pop-off. And the uterus was amputated using Elinor's and Lopez's as needed. It was then passed off the field. Vaginal cuff was then tied with multiple interrupted [id number]-cu-[id number] sutures of 0 Vicryl. Stasis was maintained throughout. Peritoneal cavity was then copiously irrigated using warm water warm sterile water. There was no bleeding noted. The retractor was then removed along with the laparotomy sponges. A lap count was performed at this time and it was accurate. We then closed the rectus muscle and peritoneum en bloc with interrupted mattress sutures of of 2-0 chromic. Fascia was then closed with 0 Vicryl running subcutaneous layer was closed with plain catgut and the skin was closed with 4-0 Vicryl. Patient tolerated procedure well sponge lap and needle counts were correct x2. Was taken to recovery in stable condition
[2020-04-28] MEDS ORDERED: METOCLOPRAMIDE HCL INJ/PF 10 MG/2 ML SDV ONE (10:35)
[2020-04-28] MEDS ORDERED: DEXAMETHASONE SOD PHOSPHATE INJ 4 MG/1 ML VIAL ONE (10:35)
[2020-04-28] MEDS ORDERED: LIDOCAINE 2% INJ-PF (20 MG/ML) 2 ML AMPUL ONE (10:35)
[2020-04-28] MEDS ORDERED: KETOROLAC TROMETHAMINE 60 MG/2 ML SDV ONE (10:35)
[2020-04-28] MEDS ORDERED: ROCURONIUM BROMIDE INJ 50 MG/5 ML VIAL IV ONE (10:35)
[2020-04-28] MEDS ORDERED: ONDANSETRON HCL INJ/PF 4 MG/2 ML SDV ONE (10:35)
[2020-04-28] MEDS ORDERED: PHENYLEPHRINE HCL INJ/PF 10 MG/1 ML SDV ONE (10:35)
[2020-04-28] MEDS: KETOROLAC TROMETHAMINE INJ/PF 30 MG/1 ML SDV IV SCH ×2 (11:16→17:23)
[2020-04-28] MEDS: DOCUSATE SODIUM 100 MG CAPSULE PO SCH ×2 (11:17→17:23)
[2020-04-28] MEDS: OXYCODONE-ACETAMINOPHEN 5-325 MG TABLET PO PRN ×2 (15:27→23:11)
[2020-04-29] MEDS: KETOROLAC TROMETHAMINE INJ/PF 30 MG/1 ML SDV IV SCH (02:12)
[2020-04-29] MEDS: OXYCODONE-ACETAMINOPHEN 5-325 MG TABLET PO PRN (05:37)
[2020-04-29 06:55] LABS: HEMOGLOBIN 11.2 g/dL (12.0-15.5); MEAN CORPUSCULAR HEMOGLOBIN 27.5 pg (27.0-33.4); MEAN CORPUSCULAR HGB CONC 34.1 g/dL (32.0-36.0); MEAN CORPUSCULAR VOLUME 81 fl (80-97); PLATELET COUNT 363 10^3/uL (150-450); RED BLOOD COUNT 4.09 10^6/uL (3.72-5.28); RED CELL DISTRIBUTION WIDTH 14.5 % (11.5-14.0); WHITE BLOOD COUNT 13.8 10^3/uL (4.0-10.5)
--- NOTE | 2020-04-29 08:10 | PDOC PROGRESS REPORT ---
Subjective Progress Note for:: 04/29/20 Subjective:: doing well. pain managed. no flatus as yet but is tolerating regular diet with no nausea/vomiting. Reason For Visit: D25.9 LEIOMYOMA OF UTERUS, UNSPECIFIED Physical Exam - Physical Exam Vital Signs: Temp Pulse Resp BP Pulse Ox 98.8 F 100 18 118/74 98 04/29/20 05:00 04/29/20 05:00 04/29/20 05:00 04/29/20 05:00 04/29/20 05:00 Intake & Output 04/28/20 04/29/20 04/30/20 06:59 06:59 06:59 Intake Total 0 4070 Output Total 3855 Balance 0 215 Weight 70.73 kg General appearance: PRESENT: no acute distress, cooperative GI/Abdominal exam: PRESENT: soft, tenderness - tenderness appropriate for post operative period. nondistended, dressing clean/dry/intact with no drainage Result Laboratory Results: 04/29/20 06:40 04/20/20 09:24 04/29/20 06:40 WBC 13.8 H RBC 4.09 Hgb 11.2 L Hct 33.0 L MCV 81 MCH 27.5 MCHC 34.1 RDW 14.5 H Plt Count 363 Impressions: Chest X-Ray 04/28/20 05:36 IMPRESSION: 1. No acute pulmonary findings. Assessment & Plan - Diagnosis (1) Uterine hypertrophy Is this a current diagnosis for this admission?: Yes (2) Fibroid uterus Qualifiers: Uterine leiomyoma location: intramural, submucous, and subserous Qualified Code(s): D25.1 - Intramural leiomyoma of uterus; D25.0 - Submucous leiomyoma of uterus; D25.2 - Subserosal leiomyoma of uterus Is this a current diagnosis for this admission?: Yes (3) Pelvic pain Is this a current diagnosis for this admission?: Yes - Time Time Spent with patient: Less than 15 minutes Medications reviewed and adjusted accordingly: Yes Anticipated discharge: Home Within: within 24 hours - Inpatient Certification Based on my medical assessment, after consideration of the patient's comorbidities, presenting symptoms, or acuity I expect that the services needed warrant INPATIENT care.: Yes I certify that my determination is in accordance with my understanding of Medic are's requirements for reasonable and necessary INPATIENT services [42 CFR 412.3e].: Yes Medical Necessity: Need for Pain Control - Plan Summary Plan Summary: plan for discharge when patient ambulating and passing flatus. valera catherter to be removed and patient to begin ambulating stanislav. may possibly go home as soon as today if doing well later.
[2020-04-29] MEDS: DOCUSATE SODIUM 100 MG CAPSULE PO SCH ×2 (09:11→18:32)
[2020-04-29] MEDS: IBUPROFEN 800 MG TABLET PO SCH ×3 (09:11→20:44)
[2020-04-29] MEDS: SIMETHICONE 80 MG TAB.CHEW PO PRN (18:43)
[2020-04-30] MEDS: IBUPROFEN 800 MG TABLET PO SCH ×2 (02:21→09:03)
[2020-04-30] MEDS: SIMETHICONE 80 MG TAB.CHEW PO PRN (06:01)
[2020-04-30] MEDS: DOCUSATE SODIUM 100 MG CAPSULE PO SCH (09:03)
--- NOTE | 2020-04-30 11:41 | PDOC DISCHARGE SUMMARY ---
Impression - Admit/DC Date/PCP Admission Date/Primary Care Provider: 04/28/20 05:29 FRANKI RUIZ MD Discharge Date: 04/30/20 - Discharge Diagnosis (1) Uterine hypertrophy Is this a current diagnosis for this admission?: Yes (2) Fibroid uterus Is this a current diagnosis for this admission?: Yes (3) Pelvic pain Is this a current diagnosis for this admission?: Yes - Additional Information Resuscitation Status: Full Code Discharge Diet: As Tolerated Discharge Activity: Balance Activity w/Rest, No Driving, No Lifting Over 10 Pounds, No Lifting/Push/Pulling, Pelvic Rest, No tub bath, Walk Frequently Referrals: FRANKI RUIZ MD [Primary Care Provider] - 05/06/20 8:30 am (Call the office for any questions or concerns.) Prescriptions: Oxycodone HCl/Acetaminophen [Percocet 5-325 mg Tablet] 1 tab PO Q4HP PRN #30 tablet PRN Reason: Docusate Sodium [Colace 100 mg Capsule] 100 mg PO BID #90 capsule Ibuprofen [Motrin 800 mg Tablet] 800 mg PO Q6A #60 tablet Home Medications: Albuterol Sulfate [Albuterol Sulfate Hfa] 2 puff IH Q6HP PRN 04/19/20 Tramadol HCl [Ultram] 50 mg PO Q6HP PRN 04/19/20 Docusate Sodium [Colace 100 mg Capsule] 100 mg PO BID #90 capsule 04/30/20 Ibuprofen [Motrin 800 mg Tablet] 800 mg PO Q6A #60 tablet 04/30/20 Oxycodone HCl/Acetaminophen [Percocet 5-325 mg Tablet] 1 tab PO Q4HP PRN #30 tablet 04/30/20 History of Present Illiness History of Present Illness: ARTURO LIZAMA is a 50 year old female Physical Exam - Physical Exam Vital Signs: Temp Pulse Resp BP Pulse Ox 98.1 F 88 18 109/69 98 04/30/20 08:32 04/30/20 08:32 04/30/20 08:32 04/30/20 08:32 04/30/20 08:32 Intake & Output 04/29/20 04/30/20 05/01/20 06:59 06:59 06:59 Intake Total 4070 200 Output Total 3855 400 Balance 215 -200 Weight 70.73 kg 74 kg Results Laboratory Results: WBC 13.8 10^3/uL (4.0-10.5) H 04/29/20 06:40 RBC 4.09 10^6/uL (3.72-5.28) 04/29/20 06:40 Hgb 11.2 g/dL (12.0-15.5) L 04/29/20 06:40 Hct 33.0 % (36.0-47.0) L 04/29/20 06:40 MCV 81 fl (80-97) 04/29/20 06:40 MCH 27.5 pg (27.0-33.4) 04/29/20 06:40 MCHC 34.1 g/dL (32.0-36.0) 04/29/20 06:40 RDW 14.5 % (11.5-14.0) H 04/29/20 06:40 Plt Count 363 10^3/uL (150-450) 04/29/20 06:40 Sodium 137.7 mmol/L (137-145) 04/20/20 09:24 Potassium 3.6 mmol/L (3.6-5.0) 04/20/20 09:24 Chloride 103 mmol/L (98-107) 04/20/20 09:24 Carbon Dioxide 26 mmol/L (22-30) 04/20/20 09:24 Anion Gap 9 (5-19) 04/20/20 09:24 BUN 11 mg/dL (7-20) 04/20/20 09:24 Creatinine 0.61 mg/dL (0.52-1.25) 04/20/20 09:24 Est GFR ( Amer) > 60 (>60) 04/20/20 09:24 Est GFR (MDRD) Non-Af > 60 (>60) 04/20/20 09:24 Glucose 113 mg/dL (75-110) H 04/20/20 09:24 Calcium 8.7 mg/dL (8.4-10.2) 04/20/20 09:24 Total Bilirubin 0.3 mg/dL (0.2-1.3) 04/20/20 09:24 Direct Bilirubin 0.0 mg/dL (0.0-0.4) 04/20/20 09:24 Neonat Total Bilirubin Not Reportable 04/20/20 09:24 Neonat Direct Bilirubin Not Reportable 04/20/20 09:24 Neonat Indirect Bili Not Reportable 04/20/20 09:24 AST 18 U/L (14-36) 04/20/20 09:24 ALT 12 U/L (<35) 04/20/20 09:24 Alkaline Phosphatase 85 U/L (38-126) 04/20/20 09:24 Total Protein 7.0 g/dL (6.3-8.2) 04/20/20 09:24 Albumin 4.1 g/dL (3.5-5.0) 04/20/20 09:24 Urine Color YELLOW 04/20/20 09:15 Urine Appearance TURBID 04/20/20 09:15 Urine pH 5.0 (5.0-9.0) 04/20/20 09:15 Ur Specific Douglas 1.019 04/20/20 09:15 Urine Protein NEGATIVE mg/dL (NEGATIVE) 04/20/20 09:15 Urine Glucose (UA) NEGATIVE mg/dL (NEGATIVE) 04/20/20 09:15 Urine Ketones NEGATIVE mg/dL (NEGATIVE) 04/20/20 09:15 Urine Blood SMALL (NEGATIVE) H 04/20/20 09:15 Urine Nitrite NEGATIVE (NEGATIVE) 04/20/20 09:15 Urine Bilirubin NEGATIVE (NEGATIVE) 04/20/20 09:15 Urine Urobilinogen 2.0 mg/dL (<2.0) H 04/20/20 09:15 Ur Leukocyte Esterase NEGATIVE (NEGATIVE) 04/20/20 09:15 Urine WBC (Auto) 1 /HPF 04/20/20 09:15 Urine RBC (Auto) 1 /HPF 04/20/20 09:15 Urine Bacteria (Auto) TRACE /HPF 04/20/20 09:15 Squamous Epi Cells Auto 8 /HPF 04/20/20 09:15 Urine Mucus (Auto) RARE /LPF 04/20/20 09:15 Urine Ascorbic Acid NEGATIVE (NEGATIVE) 04/20/20 09:15 Urine HCG, Qual NEGATIVE (NEGATIVE) 04/28/20 05:30 COVID-19 Source NASOPHARYNGEAL 04/20/20 09:20 COVID-19 (ARIEL) NOT DETECTED 04/20/20 09:20 Blood Type O POSITIVE 04/20/20 09:24 Antibody Screen NEGATIVE 04/20/20 09:24 Impressions: Chest X-Ray 04/28/20 05:36 IMPRESSION: 1. No acute pulmonary findings. Stroke Is this a Stroke Patient?: No Acute Heart Failure - Is this a Heart Failure Patient?: No
[2020-04-30 12:02] VITALS: BP 107/76
== END 2020-04-30 12:35 | disposition home or self-care (01) | DRG 743 ==
LOC: INTOOBSV 05:29 → INOR 05:29 → OBSVTOIN 05:29 → 2N 10:56
PROVIDERS: ADMIT Obstetrics & Gynecology; ATTEND Obstetrics & Gynecology
PROC: 0UT10ZZ Resection of Left Ovary, Open Approach (ICD-10-PCS; 2020-04-28)
PROC: 0UT70ZZ Resection of Bilateral Fallopian Tubes, Open Approach (ICD-10-PCS; 2020-04-28)
PROC: 0UT90ZZ Resection of Uterus, Open Approach (ICD-10-PCS; principal; 2020-04-28 07:30)
DX: D25.1 Intramural leiomyoma of uterus (principal); D25.0 Submucous leiomyoma of uterus; D25.2 Subserosal leiomyoma of uterus; R10.2 Pelvic and perineal pain; N85.2 Hypertrophy of uterus; Z87.891 Personal history of nicotine dependence
CPT/HCPCS: 36415; 71045; 80053; 81001; 81025; 840; 85027; 86850; 86900; 86901; 87635; 88307; 93005; 93010; 94799; J0131; J0690; J1100; J1170; J1885; J2250; J2370; J2405; J2704; J2765; J3010; J3490; J7060

== ENCOUNTER 2020-07-26 07:14 | Emergency (ER) | payer BC ==
[2020-07-26 09:20] VITALS: BP 112/69
--- NOTE | 2020-07-26 09:42 | ER Document Report ---
ED Headache - General Chief Complaint: Headache Stated Complaint: HEADACHE Time Seen by Provider: 07/26/20 09:11 Primary Care Provider: FRANKI RUIZ MD [Primary Care Provider] - Follow up as needed Notes: CHIEF COMPLAINT: Headache, cough, congestion HPI: 50-year-old female presenting for mild frontal headache over the last 4 days without fever. Goes away with Tylenol then returns. Developed cough congestion and body ache yesterday. Patient works in a [employer] and is concerned about COVID because several people to come to the range of been quarantined. Has not had abdominal pain nausea vomiting chest pain shortness of breath ROS: See HPI - all other systems were reviewed and are otherwise negative Constitutional: no fever Eyes: no drainage, no blurred vision ENT: + runny nose, no sore throat Cardiovascular: no chest pain Resp: no SOB, no cough GI: no vomiting, no diarrhea, no abdominal pain : no dysuria Integumentary: no rash Allergy: no hives Musculoskeletal: no extremity pain or swelling Neurological: no numbness/tingling, no weakness, positive headache MEDICATIONS: I agree with the patient medications as charted by the RN. ALLERGIES: I agree with the allergies as charted by the RN. PAST MEDICAL HISTORY/PAST SURGICAL HISTORY: Reviewed and agree as charted by RN. SOCIAL HISTORY: Reviewed and agree as charted by RN. FAMILY HISTORY: No significant familial comorbid conditions directly related to patient complaint EXAM: Reviewed vital signs as charted by RN. CONSTITUTIONAL: Alert and oriented and responds appropriately to questions. Well-appearing; well-nourished HEAD: Normocephalic; atraumatic EYES: PERRL; Conjunctivae clear, sclerae non-icteric ENT: normal nose; no rhinorrhea; moist mucous membranes; pharynx without lesions noted, no uvula edema or deviation, no tonsillar hypertrophy, phonation normal NECK: Supple without meningismus; non-tender; no cervical lymphadenopathy, no masses CARD: RRR; no murmurs, no clicks, no rubs, no gallops; symmetric distal pulses RESP: Normal chest excursion without splinting or tachypnea; breath sounds clear and equal bilaterally; no wheezes, no rhonchi, no rales, pulse oximetry 99% on room air not hypoxic ABD/GI: Normal bowel sounds; non-distended; soft, non-tender, no rebound, no guarding; no palpable organomegaly or masses. BACK: The back appears normal and is non-tender to palpation, there is no CVA tenderness EXT: Normal ROM in all joints; non-tender to palpation; no cyanosis, no effusions, no edema SKIN: Normal color for age and race; warm; dry; good turgor; no acute lesions noted NEURO: Moves all extremities equally; Motor and sensory function intact PSYCH: The patient's mood and manner are appropriate. Grooming and personal hygiene are appropriate. MDM: 50-year-old female presenting with headache congestion and upper respiratory symptoms. She is concerned about COVID we will obtain a COVID test. She has no nuchal rigidity suggesting meningitis. She does complain about slight nausea place patient on Zofran and anti-inflammatory pending her COVID test she will self quarantine at home TRAVEL OUTSIDE OF THE [place] IN LAST 30 DAYS: No - Related Data Allergies/Adverse Reactions: codeine [Codeine] Allergy (Verified 07/26/20 09:29) Past Medical History - Social History Smoking Status: Former Smoker Frequency of alcohol use: None Drug Abuse: None Family History: Arthritis, CAD, CVA, DM, Hyperlipidemia, Hypertension, Malignancy Patient has homicidal ideation: No - Past Medical History Cardiac Medical History: Denies: Hx Pulmonary Embolism Pulmonary Medical History: Reports: Hx Asthma - MILD, Hx Bronchitis Denies: Hx COPD, Hx Pneumonia, Hx Respiratory Failure, Hx Sleep Apnea, Hx Tuberculosis Neurological Medical History: Reports: Hx Migraine Renal/ Medical History: Denies: Hx Ovarian Cysts, Hx Peritoneal Dialysis, Hx Pelvic Inflammatory Disease Malignancy Medical History: Denies: Hx Breast Cancer, Hx Cervical Cancer, Hx Lung Cancer, Hx Ovarian Cancer Musculoskeletal Medical History: Reports Hx Arthritis, Reports Hx Musculoskeletal Deformity, Reports Hx Musculoskeletal Trauma Traumatic Medical History: Reports: Hx Fractures - Hand Past Surgical History: Reports: Hx Appendectomy - OPEN, Hx Gynecologic Surgery, Hx Hysterectomy, Hx Orthopedic Surgery - Right shoulder. Denies: Hx Bowel Surgery, Hx Section, Hx Cholecystectomy, Hx Gastric Bypass Surgery, Hx Herniorrhaphy, Hx Mastectomy, Hx Pacemaker, Hx Tonsillectomy, Hx Tubal Ligation - Immunizations Hx Diphtheria, Pertussis, Tetanus Vaccination: Yes Physical Exam - Vital signs Vitals: Temp 97.8 F 07/26/20 09:00 Course - Vital Signs Vital signs: Temp Pulse Resp BP Pulse Ox 97.8 F 71 16 112/69 98 07/26/20 09:13 07/26/20 09:13 07/26/20 09:13 07/26/20 09:13 07/26/20 09:13 Discharge - Discharge Clinical Impression: Person under investigation for COVID-19, Cough Headache Qualifiers: Headache type: unspecified Headache chronicity pattern: acute headache Intractability: not intractable Qualified Code(s): R51 - Headache Condition: Stable Disposition: HOME, SELF-CARE Additional Instructions: You are considered a person under investigation for COVID-19 at this time self quarantine at home until you have received your test result these usually take 2 to 5 days and you should hear from someone at the hospital about your results. Take Zofran for nausea, Voltaren for headache return for worsening symptoms Prescriptions: Diclofenac Sodium [Voltaren 50 Mg Tablet.] 50 mg PO BID #20 tablet.dr Ondansetron [Zofran Odt 4 mg Tablet] 1 - 2 tab PO Q4H PRN #15 tab.rapdis PRN Reason: For Nausea/Vomiting Forms: Return to Work Referrals: FRANKI RUIZ MD [Primary Care Provider] - Follow up as needed
== END 2020-07-26 10:35 | disposition home or self-care (01) ==
LOC: ER 07:14
DX: R51 Headache (principal); R05 Cough; J45.909 Unspecified asthma, uncomplicated; Z87.891 Personal history of nicotine dependence; Z88.6 Allergy status to analgesic agent; Z88.5 Allergy status to narcotic agent; Z20.828 Contact with and (suspected) exposure to other viral communicable diseases
CPT/HCPCS: 99283; U0003; C9803; 87635